=== PATIENT | female | born 1980 | race Caucasian/White ===

== ENCOUNTER 2019-07-21 15:06 | Inpatient (IN) | payer BC ==
--- NOTE | 2019-07-21 15:40 | ER ---
Nurse's Notes [facility] Name: Gertrude Jeter Age: 38 yrs Sex: Female : 1980 Arrival Date: 07/21/2019 Time: 15:10 Bed 20 Private MD: Diagnosis: ST elevation (STEMI) myocardial infarction of inferior wall Presentation: 07/20 15:14 Chief complaint: Patient states: midsternal chest pain x a few weeks ago. Negative sv COVID and placed on 2 rounds of abx for bronchitis. Today it came on suddenly and c/o aching to the jaw and right arm, intermittently. Took ASA 81 mg and it alleviated the pain a little but then came back and started having diaphoresis. Risk Assessment: Do you want to hurt yourself or someone else? Patient reports no desire to harm self or others. Onset of symptoms was June 2019. Care prior to arrival: Medication(s) given: ASA, 81 mg, x 1. 15:14 Method Of Arrival: Ambulatory sv 15:14 Acuity: KRISH 2 sv 15:17 Coronavirus screen: Proceed with normal triage. Patient denies a cough. Patient denies sv shortness of breath or difficulty breathing. Patient denies measured and/or subjective temperature greater than 100.4F prior to today's visit. Patient denies travel on a cruise ship or to a country the [facility] currently lists as an affected area. Patient denies contact with known and/or suspected case of COVID-19. Ebola Screen: No symptoms or risks identified at this time. Initial Sepsis Screen: Does the patient meet any 2 criteria? No. Patient's initial sepsis screen is negative. Does the patient have a suspected source of infection? No. Patient's initial sepsis screen is negative. 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 tw2 Historical: - Allergies: 15:17 No Known Allergies; sv - PMHx: 15:17 GERD; sv - PSHx: 15:17 ; uterine ablation; sv - Immunization history:: Adult Immunizations up to date. - Social history:: Smoking status: Patient reports the use of cigarette tobacco products, denies chronic smoking, but will smoke occasionally. - Family history:: Grandfather has/had NM. - Hospitalizations: : No recent hospitalization is reported. Screenin:20 Abuse screen: Denies threats or abuse. Nutritional screening: No deficits noted. tw2 Tuberculosis screening: No symptoms or risk factors identified. Fall Risk None identified. Assessment: 15:20 General: Appears in no apparent distress. slender, well groomed, Behavior is calm, tw2 cooperative, appropriate for age. Pain: Complains of pain in chest Pain does not radiate. Pain began 2-3 days ago. Neuro: Level of Consciousness is awake, alert, obeys commands, Oriented to person, place, time, situation. Cardiovascular: Reports chest pain, Denies shortness of breath, Heart tones S1 S2 Patient's skin is warm and dry. Respiratory: Airway is patent Respiratory effort is even, unlabored, Respiratory pattern is regular, symmetrical, Breath sounds are clear bilaterally. GI: No signs and/or symptoms were reported involving the gastrointestinal system. Abdomen is flat, Bowel sounds present X 4 quads. : No signs and/or symptoms were reported regarding the genitourinary system. EENT: No signs and/or symptoms were reported regarding the EENT system. Derm: No signs and/or symptoms reported regarding the dermatologic system. Musculoskeletal: Range of motion: intact in all extremities. 16:02 Reassessment: Patient appears in no apparent distress at this time. No changes from tw2 previously documented assessment. Patient and/or family updated on plan of care and expected duration. Pain level reassessed. Patient is alert, oriented x 3, equal unlabored respirations, skin warm/dry/pink. Vital Signs: 15:17 BP 156 / 106; Pulse 85; Resp 16; Temp 98.9(TE); Pulse Ox 99% ; Weight 65.77 kg; Height sv 5 ft. 2 in. (157.48 cm); 15:38 Weight 65.77 kg (R); em 15:38 Body Mass Index 26.52 (65.77 kg, 157.48 cm) em ED Course: 15:10 Patient arrived in ED. mr 15:16 Triage completed. sv 15:19 Arm band placed on. sv 15:20 Gopal Arias MD is Attending Physician. quentin 15:20 Bed in low position. Call light in reach. Placed in gown. acetylene torch operator on. Pulse ox tw2 on. NIBP on. 15:38 Stuart Mathur DO is Hospitalizing Provider. quentin 15:38 Missed attempt(s): 18 gauge in right antecubital area. Bleeding controlled, band aid dh3 applied, catheter tip intact. 15:41 Initial lab(s) drawn, by me, sent to lab. Inserted saline lock: 20 gauge in left dh3 antecubital area, using aseptic technique. Blood collected. 16:02 Pari Wang RN is Primary Nurse. tw2 16:02 No provider procedures requiring assistance completed. Patient admitted, IV remains in tw2 place. Patient maintains SpO2 saturation greater than 95% on room air. Administered Medications: 15:36 Drug: PlaVIX 300 mg Route: PO; tw2 16:02 Follow up: Response: No adverse reaction tw2 15:36 Drug: Aspirin 243 mg Route: PO; tw2 16:02 Follow up: Response: No adverse reaction tw2 15:38 Drug: NS 0.9% 1000 ml Route: IV; Rate: 1 bolus; Site: left antecubital; aa5 16:02 Follow up: IV Status: Infusion continued upon admission tw2 15:38 Drug: Heparin (NM-Bolus No thrombolytic) - HEParin 60 units/kg {Co-Signature: tw2 (Pari Wang RN).} Route: IVP; Site: left antecubital; 16:10 Follow up: 4000 units given based on weight, verified with NILES Stallworth and NILES Yañez \[id number] tw2 15:40 Drug: Heparin (NM Drip) 12 units/kg/hr - (HEParin 70494 units, D5W 500 ml) aa5 {Co-Signature: tw2 (Pari Wang RN).} Route: IV; Rate: calculated rate; Site: left antecubital; 16:02 Follow up: IV Status: Infusion continued upon admission tw2 15:55 Drug: Zofran (Ondansetron) 4 mg Route: IVP; Site: left antecubital; tw2 16:02 Follow up: Response: No adverse reaction tw2 15:57 Drug: morphine 2 mg Route: IVP; Site: left antecubital; tw2 16:02 Follow up: Response: No adverse reaction; Pain is decreased; RASS: Alert and Calm (0) tw2 Intake: Outcome: 15:40 Decision to Hospitalize by Provider. [facility] 16:02 Admitted to Senior Information Security Analyst accompanied by nurse, accompanied by tech, via stretcher, Report tw2 called to clinical lab assistant rn 16:02 Condition: stable 16:02 Instructed on the need for admit. 16:03 Patient left the ED. tw2 Signatures: Raven Gilman RN Gopal Mazariegos MD MD cha Rivera, Mary mr Myrick, Jarvis, RN RN Federica Gutierrez RN RN aa5 Pari Wang RN RN tw2 Anika Theodore 3 Pari Wang RN tw2 Corrections: (The following items were deleted from the chart) 15:19 15:17 Pulse 85bpm; Resp 16bpm; Pulse Ox 99%; Temp 98.9F Temporal; 65.77 kg; Height 5 sv ft. 2 in.; BMI: 26.5; sv 15:20 15:14 Acuity: KRISH 3 sv sv
--- NOTE | 2019-07-21 15:40 | EDPHYS ---
Physician Documentation [facility] Name: Gertrude Jeter Age: 38 yrs Sex: Female : 1980 Arrival Date: 07/21/2019 Time: 15:10 Bed 20 Private MD: Gopal Velazquez HPI: 07/20 15:37 This 38 yrs old Female presents to ER via Ambulatory with complaints of Chest quentin Pain. 15:37 The patient or guardian reports chest pain that is located primarily in the substernal quentin area. The pain radiates to Associated signs and symptoms: Pertinent positives:. The chest pain is described as a heaviness, a pressure. Modifying factors: The symptoms are alleviated by nothing. the symptoms are aggravated by nothing. Severity of pain: At its worst the pain was. The patient has not experienced similar symptoms in the past. 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 tw2 Historical: - Allergies: 15:17 No Known Allergies; sv - PMHx: 15:17 GERD; sv - PSHx: 15:17 ; uterine ablation; sv - Immunization history:: Adult Immunizations up to date. - Social history:: Smoking status: Patient reports the use of cigarette tobacco products, denies chronic smoking, but will smoke occasionally. - Family history:: Grandfather has/had CT. - Hospitalizations: : No recent hospitalization is reported. ROS: 15:37 Constitutional: Negative for fever, chills, and weight loss, Eyes: Negative for injury, quentin pain, redness, and discharge, ENT: Negative for injury, pain, and discharge, Neck: Negative for injury, pain, and swelling, Respiratory: Negative for shortness of breath, cough, wheezing, and pleuritic chest pain, Abdomen/GI: Negative for abdominal pain, nausea, vomiting, diarrhea, and constipation, Back: Negative for injury and pain, : Negative for injury, bleeding, discharge, and swelling, MS/Extremity: Negative for injury and deformity, Skin: Negative for injury, rash, and discoloration, Neuro: Negative for headache, weakness, numbness, tingling, and seizure, Psych: Negative for depression, anxiety, suicide ideation, homicidal ideation, and hallucinations, Allergy/Immunology: Negative for hives, rash, and allergies, Endocrine: Negative for neck swelling, polydipsia, polyuria, polyphagia, and marked weight changes, Hematologic/Lymphatic: Negative for swollen nodes, abnormal bleeding, and unusual bruising. 15:37 Cardiovascular: Positive for chest pain, of the chest. Exam: 15:37 Constitutional: This is a well developed, well nourished patient who is awake, alert, quentin and in no acute distress. Head/Face: Normocephalic, atraumatic. Eyes: Pupils equal round and reactive to light, extra-ocular motions intact. Lids and lashes normal. Conjunctiva and sclera are non-icteric and not injected. Cornea within normal limits. Periorbital areas with no swelling, redness, or edema. ENT: Nares patent. No nasal discharge, no septal abnormalities noted. Tympanic membranes are normal and external auditory canals are clear. Oropharynx with no redness, swelling, or masses, exudates, or evidence of obstruction, uvula midline. Mucous membranes moist. Neck: Trachea midline, no thyromegaly or masses palpated, and no cervical lymphadenopathy. Supple, full range of motion without nuchal rigidity, or vertebral point tenderness. No Meningismus. Chest/axilla: Normal chest wall appearance and motion. Nontender with no deformity. No lesions are appreciated. Cardiovascular: Regular rate and rhythm with a normal S1 and S2. No gallops, murmurs, or rubs. Normal PMI, no JVD. No pulse deficits. Respiratory: Lungs have equal breath sounds bilaterally, clear to auscultation and percussion. No rales, rhonchi or wheezes noted. No increased work of breathing, no retractions or nasal flaring. Abdomen/GI: Soft, non-tender, with normal bowel sounds. No distension or tympany. No guarding or rebound. No evidence of tenderness throughout. Back: No spinal tenderness. No costovertebral tenderness. Full range of motion. Female : Normal external genitalia. Skin: Warm, dry with normal turgor. Normal color with no rashes, no lesions, and no evidence of cellulitis. MS/ Extremity: Pulses equal, no cyanosis. Neurovascular intact. Full, normal range of motion. Neuro: Awake and alert, GCS 15, oriented to person, place, time, and situation. Cranial nerves II-XII grossly intact. Motor strength 5/5 in all extremities. Sensory grossly intact. Cerebellar exam normal. Normal gait. Psych: Awake, alert, with orientation to person, place and time. Behavior, mood, and affect are within normal limits. 15:41 ECG was reviewed by the Attending Physician. [facility] Vital Signs: 15:17 BP 156 / 106; Pulse 85; Resp 16; Temp 98.9(TE); Pulse Ox 99% ; Weight 65.77 kg; Height sv 5 ft. 2 in. (157.48 cm); 15:38 Weight 65.77 kg (R); em 15:38 Body Mass Index 26.52 (65.77 kg, 157.48 cm) em MDM: 15:20 Patient medically screened. [facility] 15:40 Differential diagnosis: abnormal EKG, acute myocardial infarction, coronary artery quentin disease chest wall pain, esophagitis, pericarditis, pulmonary embolus. Data reviewed: vital signs, nurses notes, lab test result(s), EKG, radiologic studies, plain films. Data interpreted: potline monitor: rate is 85 beats/min, rhythm is normal sinus rhythm, Pulse oximetry: on room air is 99 %. Test interpretation: by ED physician or midlevel provider: ECG, plain radiologic studies. 15:59 Physician consultation: Willian Julian MD and will see patient in the bolt labeler, [facility] immediately, pt given all meds, dr julian on standby in the bolt labeler. 07/20 15:33 Order name: Basic Metabolic Panel 07/20 15:33 Order name: CBC with Diff 07/20 15:33 Order name: LFT's 07/20 15:33 Order name: Magnesium 07/20 15:33 Order name: NT PRO-BNP 07/20 15:33 Order name: PT-INR 07/20 15:33 Order name: Troponin (emerg Dept Use Only) 07/20 15:33 Order name: XRAY Chest (1 view) 07/20 15:33 Order name: EKG; Complete Time: 15:34 07/20 15:33 Order name: Cardiac monitoring; Complete Time: 15:44 em 07/20 15:33 Order name: EKG - Nurse/Tech; Complete Time: 15:44 07/20 15:33 Order name: IV Saline Lock; Complete Time: 15:44 07/20 15:33 Order name: Labs collected and sent; Complete Time: 15:44 07/20 15:33 Order name: O2 Per Protocol; Complete Time: 15:44 em 07/20 15:33 Order name: O2 Sat Monitoring; Complete Time: 1507/20 15:36 Order name: NPO: except meds; Complete Time: 16:16 quentin EC:41 Rate is 93 beats/min. Rhythm is regular. QRS [place] is Normal. NV interval is normal. QRS quentin interval is normal. QT interval is normal. No Q waves. T waves are Normal. Clinical impression: Acute CT and Inferior CT - acute. Interpreted by me. Reviewed by me. Administered Medications: 15:36 Drug: PlaVIX 300 mg Route: PO; tw2 16:02 Follow up: Response: No adverse reaction tw2 15:36 Drug: Aspirin 243 mg Route: PO; tw2 16:02 Follow up: Response: No adverse reaction tw2 15:38 Drug: NS 0.9% 1000 ml Route: IV; Rate: 1 bolus; Site: left antecubital; aa5 16:02 Follow up: IV Status: Infusion continued upon admission tw2 15:38 Drug: Heparin (CT-Bolus No thrombolytic) - HEParin 60 units/kg {Co-Signature: tw2 (Pari Wang RN).} Route: IVP; Site: left antecubital; 16:10 Follow up: 4000 units given based on weight, verified with NILES Stallworth and NILES Yañez \[id number] tw2 15:40 Drug: Heparin (CT Drip) 12 units/kg/hr - (HEParin 95549 units, D5W 500 ml) aa5 {Co-Signature: tw (Pari Wang RN).} Route: IV; Rate: calculated rate; Site: left antecubital; 16:02 Follow up: IV Status: Infusion continued upon admission tw2 15:55 Drug: Zofran (Ondansetron) 4 mg Route: IVP; Site: left antecubital; tw2 16:02 Follow up: Response: No adverse reaction tw2 15:57 Drug: morphine 2 mg Route: IVP; Site: left antecubital; tw2 16:02 Follow up: Response: No adverse reaction; Pain is decreased; RASS: Alert and Calm (0) tw2 Disposition: 15:59 Critical Care:. quentin Disposition: 07/21/19 15:40 Hospitalization ordered by Stuart Mathur for Inpatient Admission. Preliminary diagnosis is ST elevation (STEMI) myocardial infarction of inferior wall. - Bed requested for Intensive Care Unit. - Status is Inpatient Admission. tw2 - Condition is Serious. - Problem is new. - Symptoms have improved. Critical care time excluding procedures: 15:59 Critical care time: Bedside Care: 30 minutes. Total time: 30 minutes quentin Signatures: Dispatcher [employer] Raven Sanchez, RN Gopal Mazariegos MD MD cha Munoz, Edgar, RN RN Federica Gutierrez RN RN aa5 Pari Wang RN RN tw2 Pari Wang RN tw2 Corrections: (The following items were deleted from the chart) 15:43 15:40 Hospitalization Ordered by Stuart Mathur DO for Inpatient Admission. Preliminary quentin diagnosis is ST elevation (STEMI) myocardial infarction of inferior wall. Bed requested for Telemetry/MedSurg (Inpatient). Status is Inpatient Admission. Condition is Serious. Problem is new. Symptoms have improved. quentin 16:03 15:43 07/21/2019 15:40 Hospitalization Ordered by Stuart Mathur DO for Inpatient tw2 Admission. Preliminary diagnosis is ST elevation (STEMI) myocardial infarction of inferior wall. Bed requested for Intensive Care Unit. Status is Inpatient Admission. Condition is Serious. Problem is new. Symptoms have improved. quentin
[2019-07-21] MEDS ORDERED: ASPIRIN 81 MG CHEWABLE TABLET ONE (15:42)
[2019-07-21] MEDS ORDERED: CLOPIDOGREL 75 MG TABLET ONE ×2 (15:42→16:57)
[2019-07-21] MEDS ORDERED: HEPARIN/D5W 0 UNIT/0 ML BAG IV ONE (15:43)
[2019-07-21] MEDS ORDERED: HEPARIN 5000 UNIT/ML 1 ML VIAL ONE (15:44)
[2019-07-21] MEDS ORDERED: NA CHLORIDE 0.9% 1,000 ML ONE (15:44)
[2019-07-21] MEDS ORDERED: ACETAMINOPHEN 500 MG TAB PO PRN (15:50)
[2019-07-21] MEDS ORDERED: ONDANSETRON 4 MG/2 ML VIAL IV PRN (15:50)
[2019-07-21 15:58] LABS: Absolute Lymphocytes (CBC) 3.4 K/uL (0.7-4.9); Basophils % 0.6 % (0-1.3); Hematocrit 46.5 % (36.0-45.0); Lymphocytes % 24.7 % (15.3-44.8); MPV 9.2 fL (7.6-11.3); RBC Red Blood Cell Count 4.85 M/uL (3.86-4.86)
[2019-07-21 15:59] LABS: Protime INR 1.02
[2019-07-21] MEDS ORDERED: NA CHLORIDE 0.9% 1,000 ML IV SCH ×2 (16:00→18:00)
[2019-07-21] MEDS ORDERED: NITROGLYCERIN 100 MCG/ML SYR (for cath lab use only) IV ONE (16:09)
[2019-07-21] MEDS ORDERED: NA CHLORIDE 0.9% 50 ML ONE (16:09)
[2019-07-21] MEDS ORDERED: LIDOCAINE 1% 20 ML MDV ONE (16:09)
[2019-07-21] MEDS ORDERED: NITROGLYCERIN/D5W 25 MG/250 ML BTL IV ONE (16:09)
[2019-07-21] MEDS ORDERED: ATROPINE SULF 1 MG/10 ML SYR IV ONE (16:09)
[2019-07-21] MEDS ORDERED: HEPA 1000U/500MLS 1,000 UNIT/500 ML BAG IV ONE (16:10)
[2019-07-21] MEDS ORDERED: HEPARIN/D5W 25,000 UNIT/500 ML BAG IV ONE (16:10)
[2019-07-21] MEDS ORDERED: MIDAZOLAM HCL 2 MG/2 ML INJ ONE ×3 (16:12→16:36)
[2019-07-21] MEDS ORDERED: FENTANYL CITR 100 MCG/2 ML ONE (16:13)
[2019-07-21 16:29] LABS: Albumin 4.4 g/dL (3.4-5.0); Bilirubin Direct 0.1 mg/dL (0-0.2); Bilirubin Total 0.5 mg/dL (0.2-1.0); Potassium 3.9 mmol/L (3.5-5.1); Protein, Total 8.4 g/dL (6.4-8.2)
[2019-07-21 16:36] LABS: Troponin (Emerg Dept Use Only) 0.69 ng/mL (0.0-0.045)
--- NOTE | 2019-07-21 16:37 | RAD REPORT ---
EXAM DESCRIPTION: Bobbi Single View07/21/2019 4:31 pm CLINICAL HISTORY: Chest pain COMPARISON: 2017 FINDINGS: The lungs appear clear of acute infiltrate. The heart is normal size IMPRESSION: No acute abnormalities displayed
--- NOTE | 2019-07-21 16:43 | P.HP ---
Certification for Inpatient Patient admitted to: Inpatient With expected LOS: >2 Midnights Patient will require the following post-hospital care: None Practitioner: I am a practitioner with admitting privileges, knowledge of patient current condition, hospital course, and medical plan of care. Services: Services provided to patient in accordance with Admission requirements found in Title 42 Section 412.3 of the Code of Federal Regulations <MarcyAj - Filed: 07/21/19 16:38> Patient admitted to: Inpatient With expected LOS: >2 Midnights <Stuart Mathur - Last Filed: 07/21/19 18:01> Patient History Date of Service: 07/21/19 Primary Care Provider: Dr. wu Reason for admission: STEMI History of Present Illness: 38-year-old female with medical history of hypertension presents emergency department with complaint of chest pain on and off for the last 1 week. Patient reports today that she was at work and the pain became worse. Upon presentation to the emergency department an EKG was obtained which showed that the patient was having an ST-elevation myocardial infarction. At this time ED provider reached out to cardiology . Cardiology brought the patient to the cath laboratory technician for emergent heart catheterization. When I briefly saw the patient in the emergency department prior to going to cath laboratory technician she appeared anxious and uncomfortable, blood pressure and heart rate were elevated. Home medications list reviewed: Yes - Past Medical/Surgical History Diabetic: No -: Hypertension -: section -: Uterine ablation Psychosocial/ Personal History: Patient lives at home and is single. - Family History Family History: Reviewed- Non-Contributory - Social History Smoking Status: Current every day smoker Counseled patient to stop smoking for: less than 10 minutes Smoking therapy provided: Yes Patient receptive to therapy: Yes Alcohol use: Yes CD- Drugs: No Caffeine use: Yes Place of Residence: Home <Aj Vidal - Last Filed: 07/21/19 16:38> Date of Service: 07/21/19 History of Present Illness: Patient seen and examined. Patient being transferred to heart catheterization. <Stuart Mathur - Last Filed: 07/21/19 18:01> Allergies No Known Allergies Allergy (Unverified 07/24/16 18:19) Review of Systems General: Unremarkable Eyes: Unremarkable ENT: Unremarkable Respiratory: Unremarkable Cardiovascular: Chest Pain Gastrointestinal: Unremarkable Genitourinary: Unremarkable Musculoskeletal: Unremarkable Neurological: Unremarkable Lymphatics: Unremarkable <Aj Vidal - Last Filed: 07/21/19 16:38> Physical Examination - Vital Signs Temperature: 98.9 F Blood Pressure: 156/106 Pulse: 85 Respirations: 16 - Physical Exam General: Alert, In no apparent distress, Oriented x3 HEENT: Atraumatic, Normocephalic Neck: Supple Respiratory: Clear to auscultation bilaterally, Normal air movement Cardiovascular: No edema, Normal pulses Capillary refill: <2 Seconds Gastrointestinal: Normal bowel sounds, Soft and benign Neurological: Normal speech - Studies Laboratory Data (last 24 hrs) 07/21/19 15:41: PT 12.0, INR 1.02 07/21/19 15:41: WBC 13.7 H, Hgb 15.5 H, Hct 46.5 H, Plt Count 357 07/21/19 15:41: Sodium 134 L, Potassium 3.9, BUN 12, Creatinine 0.76, Glucose 98, Magnesium 2.0, Total Bilirubin 0.5, AST 17, ALT 18, Alkaline Phosphatase 79 <Aj Vidal - Last Filed: 07/21/19 16:38> - Studies Laboratory Data (last 24 hrs) 07/21/19 15:41: PT 12.0, INR 1.02 07/21/19 15:41: WBC 13.7 H, Hgb 15.5 H, Hct 46.5 H, Plt Count 357 07/21/19 15:41: Sodium 134 L, Potassium 3.9, BUN 12, Creatinine 0.76, Glucose 98, Magnesium 2.0, Total Bilirubin 0.5, AST 17, ALT 18, Alkaline Phosphatase 79 <Stuart Mathur - Last Filed: 07/21/19 18:01> Assessment and Plan - Plan Assessment ST-elevation myocardial infarction Hypertension Tobacco abuse Plan ST-elevation myocardial infarction-patient taken to cath laboratory technician for emergent heart catheterization. Patient received aspirin, Plavix, heparin in the emergency department prior to catheterization. Cardiology will be managing this condition. Patient will remain on telemetry throughout the duration of her hospitalization. Will await further recommendations from cardiology. Will obtain urine drug screen and thyroid panel. Hypertension- Patient reports that she used to be on medications for her blood pressure but after losing weight no longer required it. Will continue to monitor blood pressure throughout hospitalization and await further input from cardiology. Will start new medications as appropriate. Tobacco abuse- Discussed need for tobacco cessation with patient. Discharge Plan: Home Plan to discharge in: 48 Hours - Advance Directives Does patient have a Living Will: No Does patient have a Durable POA for Healthcare: No - Code Status/Comfort Care Code Status Assessed: Yes (Patient is full code) Time Spent Managing Pts Care (In Minutes): 55 <Aj Vidal - Last Filed: 07/21/19 16:38> - Plan Patient seen and examined. Patient stable this time. Patient found to have ST- elevation CT. History of hypertension and tobacco use. Will obtain urine drug screen. Await results from heart catheterization. Patient will go to ICU after heart catheterization. Await recommendations and findings from cardiology. <Stuart Mathur - Last Filed: 07/21/19 18:01>
[2019-07-21] MEDS ORDERED: METOPROLOL TAR 50 MG TAB ONE (16:57)
[2019-07-21 17:14] LABS: Thyroid Stimulating Hormone 1.71 uIU/mL (0.360-3.740)
[2019-07-21 18:41] VITALS: BMI 24.7
[2019-07-21] MEDS ORDERED: TEMAZEPAM 15 MG CAP PO PRN (20:44)
[2019-07-21] MEDS ORDERED: ATORVASTATIN 80 MG TAB PO SCH (21:00)
[2019-07-21 23:01] LABS: Barbiturates NEGATIVE (NEGATIVE); Benzodiazepines POSITIVE (NEGATIVE); Cocaine NEGATIVE (NEGATIVE); METHAMPHETAM NEGATIVE (NEGATIVE); Methadone NEGATIVE (NEGATIVE); Opiates NEGATIVE (NEGATIVE); Phencyclidine NEGATIVE (NEGATIVE); THC Cannibis NEGATIVE (NEGATIVE)
--- NOTE | 2019-07-21 23:48 | OP ---
Date of Procedure: 07/21/2019 Surgeon: Willian Julian MD Application Security Architect: Lucille Jacques. The patient will remain in the hospital overnight. She will go home tomorrow. We will make arrangem ents for her to have a stent of her OM sometime in the next week or 2. She will be discharged tomorr ow on aspirin, Plavix, metoprolol, and a statin. Procedure: Emergency heart catheterization, selective coronary arteriogram, and primary stent of the proximal and the distal RCA. Indication: Acute inferolateral IN. History Of Present Illness: Ms. Jeter is a 38-year-old white woman, who has no significant past med ical history. She does smoke. Has a family history of heart disease. Was admitted to the emergency room today with an acute inferolateral IN. Description Of Procedure: She was brought to the tutorial laboratory supervisor emergently for a heart catheterization. S he was brought to the tutorial laboratory supervisor and prepped and draped in the routine sterile fashion. She continued to have pain. She had normal blood pressure, normal rhythm, but ST elevation in the inferolateral le ads. She was given Versed and fentanyl for sedation. A 6-English sheath was introduced in the right common femoral artery successfully. StarClose was used to close the procedure. Angiography there wa s normal. Fernanda catheter was used to do the diagnostic catheterization. She had a normal left josé n. She had diffuse plaquing in the LAD with about 30% mid LAD stenosis. The circumflex itself was a very small vessel. She had a large OM-1 with 80% stenosis. She was right dominant. Her RCA showed a 70% proximal stenosis and a 90% long lesion in the distal RCA. Decision was made to intervene. S he was given Plavix 600 mg total. She was given aspirin 325 mg total. She was also given metoprolol 50 mg because of heart rate elevation and blood pressure elevation. A JR4 6-English catheter with si de holes was used as a guide. A [place] wire was used to cross the lesion. A 2.5 x 20 mm stent was d eployed in the distal RCA with 0% residual. Following that, a 3.0 x 16 Synergy stent was deployed in the proximal RCA with 0% residual. The patient tolerated the procedure very well. There was no blo od loss of any significance, was probably 5 mL. There were no complications. Total conscious sedati on was 45 minutes. Final Diagnosis: Acute inferolateral myocardial infarction, status post emergency stent of the proxi mal and distal right coronary artery. She has an OM lesion of 80%, which needs to be addressed later . We will probably plan to do a stent on the OM sometimes in the next week or 2. The patient receiv ed aspirin, Plavix, metoprolol, and Angiomax during the procedure. ARON/MODL Voice ID: [id number] Report ID: [id number]
--- NOTE | 2019-07-22 04:49 | CON ---
Date of Consultation: 07/21/2019 Reason For Consultation: Acute inferolateral myocardial infarction. History Of Present Illness: Ms. Jeter is a 38-year-old white woman without any previous past medica l history. She came in with about a week worth of substernal chest pain radiating to the neck, both arms, diaphoresis, shortness of breath. She was found to have ST elevation in the inferolateral lead s and was taken to the carpenter/labor emergently for an emergency heart catheterization. She had some naus ea. No diaphoresis. No shortness of breath. Denied PND, orthopnea, pedal edema, palpitations, or s yncope. She denied any trauma. She denied any fever or chills or cough. Allergies: NONE. Past Medical History: Gastroesophageal reflux disease, uterine ablation, and . Social History: Positive for tobacco use. Family History: Positive for heart disease. Medications: At home were none. Physical Examination: Vital Signs: Stable. She was afebrile. General: She was in moderate distress from pain. Rhythm was normal with ST elevation in the inferol ateral leads. HEENT: Negative. Neck: Supple, with no bruit. Chest: Clear. Cardiac: Revealed a regular rhythm and rate. No murmurs, gallops, or rubs. Abdomen: Benign. Extremities: Revealed no clubbing, cyanosis, or edema. Diagnostic Data: Showed a white count of 13,000. Her potassium was normal. Her troponin was 0.69. BNP was 1191. The rest of the blood work was fairly unremarkable. Her thyroid level was normal. L ipid profile was still pending. Impression And Plan: Acute inferolateral myocardial infarction in a patient who has a history of smo alonso, positive family history of heart disease, continues to have chest pain. We will take her to carpenter/labor right now to perform a left heart catheterization to define her coronary anatomy. Patient understands the risk and the benefits of the procedure and she agrees to proceed. The patient has r eceived aspirin, 300 mg of Plavix. She is on a heparin drip. Has already received beta dale. case was discussed with Dr. Arias. ARON/PHAM Voice ID: [id number] Report ID: [id number]
[2019-07-22 05:19] LABS: Hematocrit 40.4 % (36.0-45.0); Lymphocytes % 41.4 % (15.3-44.8); MPV 9.2 fL (7.6-11.3); RBC Red Blood Cell Count 4.22 M/uL (3.86-4.86)
[2019-07-22 05:20] LABS: Absolute Lymphocytes (CBC) 3.8 K/uL (0.7-4.9); Basophils % 1.3 % (0-1.3)
[2019-07-22 05:37] LABS: BUN Blood Urea Nitrogen 13 mg/dL (7-18); Bicarbonate 24 mmol/L (21-32); Glucose Level 79 mg/dL (74-106); HDL Cholesterol 42 mg/dL (40-60); LDL Cholesterol, Calculated 145 (<130); Magnesium 2.2 mg/dL (1.8-2.4); NT PRO-BNP 2091 pg/mL (<125); Potassium 4.3 mmol/L (3.5-5.1); Sodium Level 140 mmol/L (136-145)
[2019-07-22 05:53] VITALS: TEMP 97.4
[2019-07-22 05:57] VITALS: O2SAT 97
--- NOTE | 2019-07-22 08:13 | PN ---
Date of Progress Note: 07/22/2019 Subjective: Ms. Jeter was admitted yesterday with an acute inferolateral DE and taken from the [facility] room straight to the tutorial laboratory supervisor, where catheterization revealed a 70% RCA mid stenosis and 90% di stal RCA stenosis. She underwent a stent for RCA in the proximal mid region as well as the distal re gion with 0% residuals. She also was found to have an 80% ostial obtuse marginal stenosis which was left alone at that time because it was not the culprit lesion. Overnight, she had done well. She pelaez s no complaints. Physical Examination: Vital Signs: Stable. She was afebrile. Chest: Clear. Skin: Her groin site is intact without any hematoma. Vascular: She has good distal pulses in the right dorsalis pedis and posterior tibial. Laboratory Data: Her telemetry showed normal sinus rhythm. Assessment And Plan: She is now status post acute inferior myocardial infarction, emergency stent of her RCA. She will go home on aspirin, Plavix, Toprol, and Lipitor, and I will make arrangements for an outpatient OM stent in the near future. ARON/PHAM Voice ID: [id number] Report ID: [id number]
--- NOTE | 2019-07-22 08:19 | P.DS ---
Admission Date: 07/21/19 Discharge Date: 07/22/19 Primary Care Provider: Dr. Horner Disposition: ROUTINE DISCHARGE Discharge Condition: GOOD Reason for Admission: STEMI Consultations: Cardiology-Dr. Julian Procedures: Heart catheterization: Date of Procedure: 07/21/2019 Surgeon: Willian Julian MD Flight Engineer Performance Qualified: Lucille Jacques. Procedure: Emergency heart catheterization, selective coronary arteriogram, and primary stent of the proximal and the distal RCA. Indication: Acute inferolateral SC. Description Of Procedure: She was brought to the labourers emergently for a heart catheterization. She had normal blood pressure, normal rhythm, but ST elevation in the inferolateral leads. She had a normal left main. She had diffuse plaquing in the LAD with about 30% mid LAD stenosis. The circumflex itself was a very small vessel. She had a large OM-1 with 80% stenosis. She was right dominant. Her RCA showed a 70% proximal stenosis and a 90% long le sanket in the distal RCA. A 2.5 x 20 mm stent was deployed in the distal RCA with 0% residual. Following that, a 3.0 x 16 Synergy stent was deployed in the proximal RCA with 0% residual. The patient tolerated the procedure very well. There was no blood loss of any significance, was probably 5 mL. There were no complications. Total conscious sedation was 45 minutes. Final Diagnosis: Acute inferolateral myocardial infarction, status post emergency stent of the proximal and distal right coronary artery. She has an OM lesion of 80%, which needs to be addressed later. We will probably plan to do a stent on the OM sometimes in the next week or 2. The patient received aspirin, Plavix, metoprolol, and Angiomax during the procedure. Medical problem list: Acute ST-elevation myocardial infarction status post emergent heart catheterization showing diffuse plaquing in the LAD with about 30% mid LAD stenosis and large OM-1 with 80% stenosis. RCA showed 70% proximal stenosis and 90% long lesion in the distal RCA. Status post stenting-distal RCA and a proximal RCA Hypertension Hyperlipidemia Tobacco abuse Brief History of Present Illness: 38-year-old female presented to the emergency room with chest pain and shortness of breath. Patient found to have EKG changes of ST elevation SC. Patient was emergently sent to the heart catheterization lab for intervention. Hospital Course: Patient presented with acute chest pain and shortness of breath. Patient found to have acute ST elevation SC. Patient had emergent heart catheterization with cardiology. Heart catheterization showed diffuse plaquing in the LAD with about 30% mid LAD stenosis and large OM-1 with 80% stenosis. RCA showed 70% proximal stenosis and 90% long lesion in the distal RCA stenosis. Patient required stenting to the distal RCA and proximal RCA. Cardiology mentioned that another stent to her OM-1 stenosis will be required in the next 1-2 weeks. Patient tolerated the procedure well. She was sent to ICU Overnite. The patient has done well. No further chest pain or shortness of breath noted. LDL elevated at 145. Patient was started on medication for hypertension and hyperlipidemia. Patient has been cleared by cardiology for discharge. At discharge patient will continue with aspirin 81 mg daily, Plavix 75 mg daily, Toprol XL 25 mg daily, and Lipitor 80 mg daily. Patient will follow up with Cardiology this week to further address her other stenosis. Arrangements for heart catheterization- stenting of large OM-1 stenosis is planned within the next 1-2 weeks. Education on CAD, hypertension, hyperlipidemia, and heart catheterization will be provided. Patient is not to work until cleared by cardiology. Tobacco cessation education will be provided. Vital Signs/Physical Exam: Temp Pulse Resp BP Pulse Ox 97.4 F 75 18 111/91 H 96 07/22/19 04:00 07/22/19 06:00 07/22/19 06:00 07/22/19 06:00 07/22/19 04:00 General: Alert, In no apparent distress, Oriented x3, Cooperative HEENT: Atraumatic Neck: Supple Respiratory: Clear to auscultation bilaterally, Normal air movement Cardiovascular: Normal pulses, Regular rate/rhythm Gastrointestinal: Normal bowel sounds, Soft and benign, Non-distended, No tenderness, No masses, No rebound, No guarding Integumentary: No cyanosis Neurological: Normal speech, Normal strength at 5/5 x4 extr, Normal tone, Normal affect Laboratory Data at Discharge: WBC 9.2 K/uL (4.3-10.9) D 07/22/19 04:59 Hgb 13.9 g/dL (12.0-15.0) 07/22/19 04:59 Hct 40.4 % (36.0-45.0) 07/22/19 04:59 Plt Count 279 K/uL (152-406) D 07/22/19 04:59 PT 12.0 SECONDS (9.5-12.5) 07/21/19 15:41 INR 1.02 07/21/19 15:41 Sodium 140 mmol/L (136-145) 07/22/19 04:59 Potassium 4.3 mmol/L (3.5-5.1) 07/22/19 04:59 BUN 13 mg/dL (7-18) 07/22/19 04:59 Creatinine 0.64 mg/dL (0.55-1.3) 07/22/19 04:59 Glucose 79 mg/dL (74-106) 07/22/19 04:59 Magnesium 2.2 mg/dL (1.8-2.4) 07/22/19 04:59 Total Bilirubin 0.5 mg/dL (0.2-1.0) 07/21/19 15:41 AST 17 U/L (15-37) 07/21/19 15:41 ALT 18 U/L (12-78) 07/21/19 15:41 Alkaline Phosphatase 79 U/L (45-117) 07/21/19 15:41 Troponin I Cancelled 07/22/19 00:00 Triglycerides 136 mg/dL (<150) 07/22/19 04:59 Cholesterol 214 mg/dL (<200) H 07/22/19 04:59 HDL Cholesterol 42 mg/dL (40-60) 07/22/19 04:59 Cholesterol/HDL Ratio 5.10 07/22/19 04:59 Home Medications: Omeprazole Magnesium [Prilosec Otc] 20 mg PO DAILY 07/21/19 Aspirin [Aspirin EC 81 MG] 81 mg PO DAILY #30 tablet. 07/22/19 Atorvastatin Calcium [Lipitor] 80 mg PO BEDTIME #30 tab 07/22/19 Clopidogrel Bisulfate [Plavix*] 75 mg PO DAILY #30 tablet 07/22/19 Metoprolol Succinate [Toprol Xl*] 50 mg PO DAILY #30 tab 07/22/19 New Medications: Aspirin [Aspirin EC 81 MG] 81 mg PO DAILY #30 tablet. Atorvastatin Calcium [Lipitor] 80 mg PO BEDTIME #30 tab Clopidogrel Bisulfate [Plavix*] 75 mg PO DAILY #30 tablet Metoprolol Succinate [Toprol Xl*] 50 mg PO DAILY #30 tab Patient Discharge Instructions: 1. Recommend follow up with PCP in 1 week to follow up this hospitalization. 2. Patient presented with acute chest pain and shortness of breath. Patient found to have acute ST elevation SC. Patient had emergent heart catheterization with cardiology. Heart catheterization showed diffuse plaquing in the LAD with about 30% mid LAD stenosis and large OM-1 with 80% stenosis. RCA showed 70% proximal stenosis and 90% long lesion in the distal RCA stenosis. Patient required stenting to the distal RCA and proximal RCA. Cardiology mentioned that another stent to her OM-1 stenosis will be required in the next 1-2 weeks. Patient tolerated the procedure well. She was sent to ICU Overnite. The patient has done well. No further chest pain or shortness of breath noted. LDL elevated at 145. Patient was started on medicati on for hypertension and hyperlipidemia. Patient has been cleared by cardiology for discharge. At discharge patient will continue with aspirin 81 mg daily, Plavix 75 mg daily, Toprol XL 25 mg daily, and Lipitor 80 mg daily. Prescriptions for medications provided by Cardiology. Patient will follow up with Cardiology this week to further address her other stenosis. Arrangements for heart catheterization-stenting of large OM-1 stenosis is planned within the next 1-2 weeks. Education on CAD, hypertension, hyperlipidemia, and heart catheterization will be provided. Patient is not to work until cleared by cardiology. Tobacco cessation education will be provided. Diet: AHA Activity: Ad ana Followup: Willian Julian MD [ACTIVE - CAN ADMIT] - (Call Wednesday for scheduling next cath) Jesse Horner MD [Primary Care Provider] - 1-2 Weeks (Follow up in 1-2 weeks) Time spent managing pt's care (in minutes): 55
[2019-07-22 08:20] VITALS: BP 115/85
[2019-07-22] MEDS ORDERED: CLOPIDOGREL 75 MG TABLET PO SCH (09:00)
[2019-07-22] MEDS ORDERED: ASPIRIN EC 81 MG TAB PO SCH (09:00)
[2019-07-22] MEDS ORDERED: NICOTINE 21 MG/PAT TD SCH (09:00)
[2019-07-22] MEDS ORDERED: METOPROLOL XL 50 MG TAB PO SCH (09:00)
--- NOTE | 2019-07-22 12:19 | EKG ---
Test Date: 2019-07-21 Test Time: 15:28:15 Continuous Washer Operator: SUZANNA MEASUREMENT RESULTS: Intervals: Rate: 93 IA: 134 QRSD: 78 QT: 368 QTc: 457 [place]: P: 35 IA: 134 QRS: 68 T: 77 INTERPRETIVE STATEMENTS: Age and gender specific ECG analysis Normal sinus rhythm ST elevation, consider inferolateral injury or acute infarct ACUTE VT Consider right ventricular involvement in acute inferior infarct Abnormal ECG Compared to ECG 07/24/2016 14:34:15 ST (T wave) deviation now present Myocardial infarct finding now present Myocardial infarct finding now present Sinus tachycardia no longer present Electronically Signed On 07-22-19 12:17:47 CDT by Willian Julian
--- NOTE | 2019-07-26 07:26 | EKG ---
Test Date: 2019-07-21 Test Time: 16:26:17 Driver Guard: SANDY MEASUREMENT RESULTS: Intervals: Rate: 74 MS: 132 QRSD: 74 QT: 416 QTc: 461 [place]: P: 8 MS: 132 QRS: 58 T: 1 INTERPRETIVE STATEMENTS: Sinus rhythm with occasional premature ventricular complexes T wave abnormality, consider inferior ischemia Prolonged QT Abnormal ECG Compared to ECG 07/21/2019 15:28:15 Ventricular premature complex(es) now present T-wave abnormality now present Possible ischemia now present Prolonged QT interval now present ST (T wave) deviation no longer present Myocardial infarct finding no longer present Myocardial infarct finding no longer present Electronically Signed On 07-26-19 07:23:18 CDT by Willian Julian
== END 2019-07-22 08:09 | disposition home or self-care (01) | DRG 247 ==
LOC: ER 15:06 → ERHOLD 15:49 → 3RD-ICU 17:15
PROVIDERS: ADMIT Family Medicine; ATTEND Family Medicine
PROC: 027035Z Dilation of Coronary Artery, One Artery with Two Drug-eluting Intraluminal Devices, Percutaneous Approach (ICD-10-PCS; principal; 2019-07-21)
PROC: 4A023N7 Measurement of Cardiac Sampling and Pressure, Left Heart, Percutaneous Approach (ICD-10-PCS; 2019-07-21)
PROC: B2111ZZ Fluoroscopy of Multiple Coronary Arteries using Low Osmolar Contrast (ICD-10-PCS; 2019-07-21)
DX: I21.19 ST elevation (STEMI) myocardial infarction involving other coronary artery of inferior wall (principal); I10 Essential (primary) hypertension; F41.9 Anxiety disorder, unspecified; K21.9 Gastro-esophageal reflux disease without esophagitis; F17.210 Nicotine dependence, cigarettes, uncomplicated; E78.5 Hyperlipidemia, unspecified; Z79.82 Long term (current) use of aspirin; Z79.02 Long term (current) use of antithrombotics/antiplatelets; Z79.899 Other long term (current) drug therapy
CPT/HCPCS: 36415; 71045; 80048; 80061; 80076; 80307; 82947; 83735; 83880; 84439; 84443; 84484; 85025; 85347; 85610; 92928; 93005; 93454; 96365; 96375; 99285; C1725; C1893; J0583; J1644; J2250; J3010; J7030

== ENCOUNTER 2019-07-27 11:04 | Observation (INO) | payer BC ==
[2019-07-27] MEDS ORDERED: NA CHLORIDE 0.9% 500 ML ONE ×3 (11:23→14:14)
[2019-07-27] MEDS ORDERED: HEPA 1000U/500MLS 2,000 UNIT/1,000 ML BAG IV ONE (12:05)
[2019-07-27] MEDS ORDERED: FENTANYL CITR 100 MCG/2 ML ONE ×5 (12:19→13:41)
[2019-07-27] MEDS ORDERED: HEPARIN 5000 UNIT/ML 1 ML VIAL ONE ×2 (12:19→14:21)
[2019-07-27] MEDS ORDERED: NITROGLYCERIN 100 MCG/ML SYR (for cath lab use only) IV ONE (12:20)
[2019-07-27] MEDS ORDERED: ATROPINE SULF 1 MG/10 ML SYR IV ONE (12:20)
[2019-07-27] MEDS ORDERED: NITROGLYCERIN/D5W 25 MG/250 ML BTL IV ONE (12:20)
[2019-07-27] MEDS ORDERED: MIDAZOLAM HCL 5 MG/5 ML INJ ONE (12:20)
[2019-07-27] MEDS ORDERED: NICARDIPINE HCL 25 MG/10 ML IV ONE (12:21)
[2019-07-27] MEDS ORDERED: MIDAZOLAM HCL 2 MG/2 ML INJ ONE (12:42)
[2019-07-27] MEDS ORDERED: CLOPIDOGREL 75 MG TABLET ONE (13:06)
[2019-07-27] MEDS ORDERED: HEPA 1000U/500MLS 1,000 UNIT/500 ML BAG IV ONE ×2 (13:27→14:07)
[2019-07-27] MEDS ORDERED: NITROGLYCERIN 0.4 MG/TAB SL ONE (13:39)
[2019-07-27] MEDS ORDERED: NA CHLORIDE 0.9% 0 ML ONE (14:14)
[2019-07-27] MEDS ORDERED: ACETAMINOPHEN 325 MG TABLET ONE (14:36)
[2019-07-27 16:50] VITALS: BMI 26.4
[2019-07-27] MEDS ORDERED: ZOLPIDEM TARTRATE 5 MG TABLET PO PRN (18:27)
[2019-07-27] MEDS ORDERED: ONDANSETRON 4 MG/2 ML VIAL IV PRN (18:30)
[2019-07-27] MEDS: ACETAMINOPHEN 325 MG TABLET PO PRN (21:10)
[2019-07-27] MEDS: MORPHINE 4 MG/ML SYR IV PRN (22:15)
--- NOTE | 2019-07-28 01:36 | OP ---
Date of Procedure: 07/27/2019 Surgeon: SHABBIR JOHNSON Admin Assistant: Dr. Shabbir Johnson. Names Of Procedures: 1.Selective coronary angiogram. 2.Percutaneous coronary intervention of severe second OM branch, ostial to proximal stenosis, 90%, l esion length is 15 mm. We used a 2.5 x 20 mm Synergy drug-eluting stent. ROXI-3 flow before and aft er percutaneous coronary intervention, 0% residual stenosis post percutaneous coronary intervention. 3.Percutaneous coronary intervention of the proximal severe right coronary artery stenosis using a 3 x 24 mm Synergy drug-eluting stent overlapped by 3.0 x 60 mm Synergy drug-eluting stent. Lesion moise gth is 22 mm. ROXI-3 flow before and after percutaneous coronary intervention, 0% residual stenosis post percutaneous coronary intervention. Access: Failed right radial artery due to spasm and then switched to right femoral artery 6-Kenyan, closed with 6-Kenyan Angio-Seal with good hemostasis. TR band was used to close the right radial acc ess. Indication: Recent non-ST elevation myocardial infarction. Complication: Dissection of the proximal right coronary artery was successfully treated with PCI as above with resultant ROXI-3 flow. Licensed Occupational Therapist: Willian Julian M.D. Description Of Procedure: Patient was brought to the cardiac catheterization laboratory, prepped and draped in usual sterile fashion and we used the incremental doses of fentanyl and Versed to achieve adequate moderate sedation. Then, we accessed the right radial artery and 6-Kenyan sheath was placed . Then, we needed the 6-Kenyan JR4 Diagnostic catheter and engaged the right coronary artery. Stand david views were obtained and then the artery started spasming significantly. We could not exchange fo r guide, so we switched to the groin access. After landmarks were identified and injecting lidocaine into the skin and subcutaneous tissue, we accessed the right femoral artery at the mid femoral head and then inserted a 6-Kenyan [place] sheath. Then, we took a left 3.5 guide and engaged the left ma in coronary artery and took a run-through wire and passed it through the second OM stenosis, and we u sed a 2.5 x 50 mm balloon for angioplasty and then used a 2.5 x 20 mm Synergy drug-eluting stent with ROXI-3 flow and no complication. Then, we took a JR4 guide into the aortic root over the J-wire and engaged the right coronary artery. Subsequently, there was significant dampening of the pressure du e to severe stenosis of the proximal RCA and then, subsequently a dissection happened at the proximal portion of the artery and caused the loss of flow and ST-elevation. Patient started having chest pa in. We immediately changed the guide to a 3DRC guide and as trial to pass run-through wire through t JR4 guide failed, we kept going through the dissection plane and through the DRC guide after multi ple attempts, we were able to send a run-through wire through the RCA into the PLB and we established flow. The ST elevation resolved. Chest pain resolved. Then, we took a 3.0 x 24 mm Synergy drug-el uting stent and stented the proximal portion of the RCA. There was still an area that did not get co wayne with the stent and dissection was still present there, so we overlapped the previous stent by a nother stent, which was 3.0 x 16 mm Synergy drug-eluting stent and then took a final picture and had ROXI-3 flow with excellent results. Then, we took the wires and guides outside the body and took the femoral sheath out and closed the femoral access with a 6-Kenyan Angio-Seal with good hemostasis. T ook the radial sheath out and closed it with a TR band with good hemostasis. Impression: Severe second obtuse marginal coronary artery disease and proximal right coronary artery stenosis, status post percutaneous coronary intervention as above. Recommendations: 1.Aggressive cardiac risk factor modification. 2.Patient was loaded with 300 mg of Plavix. Continue 75 mg daily and aspirin 81 mg. Of note, the p atient was on Plavix at home. Findings: 1.Severe second OM ostial to proximal stenosis, 90%, status post PCI as above. 2.Severe proximal RCA stenosis, status post PCI as above. 3.Stent edge dissection of the distal RCA, however, with the ROXI-3 flow was kept for medical manage ment at this point. SR/MODL Voice ID: [id number] Report ID: [id number]
[2019-07-28] MEDS: MORPHINE 4 MG/ML SYR IV PRN ×2 (02:46→06:36)
[2019-07-28 04:44] VITALS: O2SAT 97
[2019-07-28 04:56] LABS: Absolute Lymphocytes (CBC) 2.3 K/uL (0.7-4.9); Basophils % 1.4 % (0-1.3); Hematocrit 36.3 % (36.0-45.0); Lymphocytes % 37.4 % (15.3-44.8); MPV 9.5 fL (7.6-11.3); RBC Red Blood Cell Count 3.75 M/uL (3.86-4.86)
[2019-07-28 05:10] LABS: BUN Blood Urea Nitrogen 9 mg/dL (7-18); Bicarbonate 26 mmol/L (21-32); Glucose Level 80 mg/dL (74-106); Potassium 4.2 mmol/L (3.5-5.1); Sodium Level 138 mmol/L (136-145)
[2019-07-28] MEDS: ACETAMINOPHEN 325 MG TABLET PO PRN (06:13)
[2019-07-28 07:30] VITALS: BP 99/71
[2019-07-28 07:42] VITALS: TEMP 98.3
[2019-07-28] MEDS ORDERED: ATORVASTATIN 80 MG TAB PO SCH (09:00)
[2019-07-28] MEDS ORDERED: ASPIRIN 81 MG CHEWABLE TABLET PO SCH (09:00)
[2019-07-28] MEDS ORDERED: CLOPIDOGREL 75 MG TABLET PO SCH (09:00)
--- NOTE | 2019-07-29 21:03 | PN ---
Date of Progress Note: 07/28/2019 Subjective: Ms. Jeter was admitted as an outpatient on 07/27/2019 for a staged intervention of the obtuse marginal. She underwent a successful angioplasty and stent of the OM with 0% residual. RCA i njection showed a small dissection in the distal RCA after a recent stent that was done about a week ago. Attempt to dilate and stent that lesion resulted initially in a dissection of the proximal RCA. This was taken care of with angioplasty and multiple stents in the proximal RCA and mid and distal RCA with 0% residual. Overnight, patient did well. No complaints. Right groin was intact without a ny hematoma. She did not have any arrhythmias overnight. Physical Examination: Vital Signs: Stable. Chest: Clear. Diagnostic Data: Her diagnostic data were all within normal limits. Final Impression: Status post successful angioplasty and stent of the obtuse marginal and right shimon nary artery, status post recent myocardial infarction about a week ago. Patient is on appropriate th erapy with aspirin, beta-blockers, Plavix, and statin. I am comfortable with her going home. I will see her in the office in the near future. ARON/PHAM Voice ID: [id number] Report ID: [id number]
--- NOTE | 2019-08-04 06:27 | EKG ---
Test Date: 2019-07-27 Test Time: 13:37:30 Polisher Balance Screwhead: LUIS MIGUEL MEASUREMENT RESULTS: Intervals: Rate: 84 MI: 144 QRSD: 76 QT: 408 QTc: 482 [place]: P: 37 MI: 144 QRS: 34 T: -39 INTERPRETIVE STATEMENTS: Sinus rhythm with fusion complexes T wave abnormality, consider inferolateral ischemia Prolonged QT Abnormal ECG Compared to ECG 07/27/2019 12:34:59 Fusion complex(es) now present T-wave abnormality now present Possible ischemia now present Prolonged QT interval now present ST (T wave) deviation no longer present Myocardial infarct finding no longer present Myocardial infarct finding no longer present Electronically Signed On 08-04-19 06:24:27 CDT by Willian Julian
--- NOTE | 2019-08-04 06:28 | EKG ---
Test Date: 2019-07-27 Test Time: 12:34:59 Pharmacy Technology Instructor: LUIS MIGUEL MEASUREMENT RESULTS: Intervals: Rate: 75 RI: 158 QRSD: 80 QT: 364 QTc: 406 [place]: P: 49 RI: 158 QRS: 78 T: 109 INTERPRETIVE STATEMENTS: Poor data quality, interpretation may be adversely affected Age and gender specific ECG analysis Normal sinus rhythm ST elevation, consider inferior injury or acute infarct ACUTE ND Consider right ventricular involvement in acute inferior infarct Abnormal ECG Compared to ECG 07/21/2019 16:26:17 ST (T wave) deviation now present Myocardial infarct finding now present Myocardial infarct finding now present Ventricular premature complex(es) no longer present T-wave abnormality no longer present Possible ischemia no longer present Prolonged QT interval no longer present Electronically Signed On 08-04-19 06:24:48 CDT by Willian Julian
== END 2019-07-28 07:29 | disposition home or self-care (01) ==
LOC: CCL 11:04 → 3RD-ICU 15:00
PROC: 027136Z Dilation of Coronary Artery, Two Arteries with Three Drug-eluting Intraluminal Devices, Percutaneous Approach (ICD-10-PCS; principal; 2019-07-27)
DX: I21.19 ST elevation (STEMI) myocardial infarction involving other coronary artery of inferior wall (principal); I25.10 Atherosclerotic heart disease of native coronary artery without angina pectoris; I97.88 Other intraoperative complications of the circulatory system, not elsewhere classified; I25.42 Coronary artery dissection; Y65.8 Other specified misadventures during surgical and medical care; Y92.238 Other place in hospital as the place of occurrence of the external cause; F17.200 Nicotine dependence, unspecified, uncomplicated; K21.9 Gastro-esophageal reflux disease without esophagitis; Z82.49 Family history of ischemic heart disease and other diseases of the circulatory system
CPT/HCPCS: 92928 ×3; 93005 ×2; 85025; 80048; 36415; 85347 ×3; 92929; 93458; G0379; C1893; C1760; C1725; J1644 ×2; J2250 ×2; J3010 ×5; J7040 ×3; G0378 ×3; J7030

== ENCOUNTER 2019-07-29 16:14 | Emergency (ER) | payer BC ==
--- NOTE | 2019-07-29 18:30 | EDPHYS ---
Physician Documentation [facility] Name: Gertrude Jeter Age: 38 yrs Sex: Female : 1980 Arrival Date: 07/29/2019 Time: 16:15 Bed 15 Private MD: Willian Julian S ED Physician Peter Dodge HPI: 07/28 18:04 This 38 yrs old Female presents to ER via Ambulatory with complaints of rn Hematoma. 18:04 The patient presents with pain, swelling. The complaints affect the right femoral area. rn Onset: The symptoms/episode began/occurred today. Modifying factors: The symptoms are alleviated by nothing. the symptoms are aggravated by nothing. Severity of symptoms: At their worst the symptoms were mild. The patient has not experienced similar symptoms in the past. Reports recent heart cath, has not done anything recently, today noticed hematoma, called cardiology, told to come for evaluation. No other complaints. No new blood thinners. Reports did get upset last night and had argument with son. . 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 - Social history:: Smoking status: Patient/guardian denies using tobacco, but has a distant history of tobacco abuse. - Family history:: not pertinent. - Hospitalizations: : The patient was recently seen at [facility]. ROS: 18:04 Constitutional: Negative for fever, chills, and weight loss, Eyes: Negative for injury, rn pain, redness, and discharge, Cardiovascular: Negative for chest pain, palpitations, and edema, Respiratory: Negative for shortness of breath, cough, wheezing, and pleuritic chest pain, Abdomen/GI: Negative for abdominal pain, nausea, vomiting, diarrhea, and constipation, MS/Extremity: + mild right femoral pain Skin: Negative for injury, rash, and discoloration, Neuro: Negative for headache, weakness, numbness, tingling, and seizure. Exam: 18:04 Constitutional: This is a well developed, well nourished patient who is awake, alert, rn and in no acute distress. Cardiovascular: Regular rate and rhythm with a normal S1 and S2. No gallops, murmurs, or rubs. Normal PMI, no JVD. No pulse deficits. Respiratory: Lungs have equal breath sounds bilaterally, clear to auscultation and percussion. No rales, rhonchi or wheezes noted. No increased work of breathing, no retractions or nasal flaring. Abdomen/GI: Soft, non-tender, with normal bowel sounds. No distension or tympany. No guarding or rebound. No evidence of tenderness throughout. MS/ Extremity: + swelling Vital Signs: 16:31 BP 108 / 80; Pulse 81; Resp 16 S; Temp 97.2(TE); Pulse Ox 100% on R/A; Weight 65.09 kg; ca1 Height 5 ft. 2 in. (157.48 cm) (R); Pain 6/10; 16:31 Body Mass Index 26.25 (65.09 kg, 157.48 cm) ca1 MDM: 16:47 Patient medically screened. rn 18:29 Differential diagnosis: hematoma, fistula, aneurysm. Data reviewed: vital signs, nurses rn notes, radiologic studies, ultrasound, and as a result, I will discharge patient. Counseling: I had a detailed discussion with the patient and/or guardian regarding: the historical points, exam findings, and any diagnostic results supporting the discharge/admit diagnosis, radiology results, the need for outpatient follow up, to return to the emergency department if symptoms worsen or persist or if there are any questions or concerns that arise at home. Special discussion: I discussed with the patient/guardian in detail that at this point there is no indication for admission to the hospital. It is understood, however, that if the symptoms persist or worsen the patient needs to return immediately for re-evaluation. 07/28 16:59 Order name: Lower Extremity [facility]tery [employer] ; Complete Time: 07:50 rn Administered Medications: No medications were administered Disposition: 07/29/19 18:30 Discharged to Home. Impression: Femoral hematoma. - Condition is Stable. - Discharge Instructions: Hematoma. - Medication Reconciliation Form, Thank You Letter, Antibiotic Education, Prescription Opioid Use form. - Follow up: Willian Julian MD; When: As needed; Reason: Recheck today's complaints, Re-evaluation by your physician. - Problem is new. - Symptoms have improved. Signatures: Dispatcher [employer] EDSD Peter Dodge MD MD rn Stewart, Lisa, RN RN ls4 Belkys Fuller RN RN ca1 Corrections: (The following items were deleted from the chart) 19:00 18:30 07/29/2019 18:30 Discharged to Home. Impression: Femoral hematoma. Condition is ls4 Stable. Forms are Medication Reconciliation Form, Thank You Letter, Antibiotic Education, Prescription Opioid Use. Follow up: Willian Julian; When: As needed; Reason: Recheck today's complaints, Re-evaluation by your physician. Problem is new. Symptoms have improved. rn
--- NOTE | 2019-07-29 18:30 | ER ---
Nurse's Notes [facility] Name: Gertrude Jeter Age: 38 yrs Sex: Female : 1980 Arrival Date: 07/29/2019 Time: 16:15 Bed 15 Private MD: Willian Julian S Diagnosis: Femoral hematoma Presentation: 07/28 16:31 Chief complaint: Patient states: Had 2 Heart stents through R femoral vein. Last stent ca1 done on , 07/27/2019. Noticed a Hematoma at the area today, pain at the site when walking. Reports hasn't been feeling well since the . Coronavirus screen: Proceed with normal triage. Patient denies a cough. Patient denies shortness of breath or difficulty breathing. Patient denies measured and/or subjective temperature greater than 100.4F prior to today's visit. Patient denies travel on a cruise ship or to a country the [facility] currently lists as an affected area. Patient denies contact with known and/or suspected case of COVID-19. Ebola Screen: Patient negative for fever greater than or equal to 101.5 degrees Fahrenheit, and additional compatible Ebola Virus Disease symptoms Patient denies exposure to infectious person. Patient denies travel to an Ebola-affected area in the 21 days before illness onset. No symptoms or risks identified at this time. Initial Sepsis Screen: Does the patient meet any 2 criteria? No. Patient's initial sepsis screen is negative. Does the patient have a suspected source of infection? No. Patient's initial sepsis screen is negative. Risk Assessment: Do you want to hurt yourself or someone else? Patient reports no desire to harm self or others. Onset of symptoms was July 29, 2019. 16:31 Method Of Arrival: Ambulatory ca1 16:31 Acuity: KRISH 3 ca1 Triage Assessment: 17:15 General: Appears in no apparent distress. uncomfortable, Behavior is calm, cooperative. ls4 Pain: Complains of pain in right femoral area Pain currently is 6 out of 10 on a pain scale. at worst was 9 out of 10 on a pain scale. Aggravated by increased activity, weight bearing. Neuro: No deficits noted. Cardiovascular: Denies chest pain, diaphoresis, lightheadedness, nausea, palpitations, shortness of breath, syncope, vomiting, Capillary refill < 3 seconds Clubbing of nail beds is absent JVD is absent Thorax Patient's skin is warm and dry. Rhythm is sinus arrythmia Chest pain is denied. Musculoskeletal: Circulation, motion, and sensation intact. Capillary refill < 3 seconds, Range of motion: intact in all extremities, Swelling present in right femoral area. 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 - Social history:: Smoking status: Patient/guardian denies using tobacco, but has a distant history of tobacco abuse. - Family history:: not pertinent. - Hospitalizations: : The patient was recently seen at [facility]. Screenin:15 Abuse screen: Denies threats or abuse. Denies injuries from another. Nutritional ls4 screening: No deficits noted. Tuberculosis screening: No symptoms or risk factors identified. Fall Risk None identified. Vital Signs: 16:31 BP 108 / 80; Pulse 81; Resp 16 S; Temp 97.2(TE); Pulse Ox 100% on R/A; Weight 65.09 kg; ca1 Height 5 ft. 2 in. (157.48 cm) (R); Pain 6/10; 16:31 Body Mass Index 26.25 (65.09 kg, 157.48 cm) ca1 ED Course: 16:15 Patient arrived in ED. as 16:16 Willian Julian MD is Private Physician. as 16:36 Triage completed. ca1 16:38 Arm band placed on right wrist. ca1 16:42 Marlys Landa, NILES is Primary Nurse. ls4 16:47 Peter Dodge MD is Attending Physician. rn 17:15 Patient has correct armband on for positive identification. Bed in low position. Call ls4 light in reach. Side rails up X 1. 17:15 No provider procedures requiring assistance completed. EKG done, by ED staff, reviewed ls4 by Peter Dodge MD. 17:15 Patient maintains SpO2 saturation greater than 95% on room air. ls4 17:52 Lower Extremity Artery Uni Ltd US In Process Unspecified. EDMS 17:52 Ultrasound completed. Patient tolerated well. Notified LEAD DATABASE ADMINISTRATOR/PA sloane. sg3 18:29 Willian Julian MD is Referral Physician. rn Administered Medications: No medications were administered Outcome: 18:30 Discharge ordered by . rn 19:00 Patient left the ED. ls4 Signatures: Dispatcher [employer] EDMS Jonelle Tena Roman, MD MD rn Godinez, Luz Marina sg3 Marlys Landa, RN RN ls4 Belkys Fuller RN RN ca1
--- NOTE | 2019-07-29 18:54 | RAD REPORT ---
EXAM DESCRIPTION: US - Lower Extremity Artery Uni Ltd - 07/29/2019 5:51 pm CLINICAL HISTORY: recent heart cath, rule out femoral artery/venous fistula COMPARISON: No comparisons TECHNIQUE: Doppler evaluation of the right arterial tree performed. Waveforms and velocity values we re obtained along with visual inspection. FINDINGS: Triphasic waveform pattern was seen along the length of the right lower extremity. No occl usion or focal flow restricting lesion identifiable. In the right common femoral artery region no pse udoaneurysm seen. No findings to suspect femoral artery to venous fistula. IMPRESSION: No right groin AV fistula seen. No pseudoaneurysm. No suspicious findings in the right lower extremity arterial tree.
[2019-07-29 19:06] VITALS: BP 108/80; TEMP 97.2; O2SAT 100
--- NOTE | 2019-08-01 07:05 | EKG ---
Test Date: 2019-07-29 Test Time: 17:03:41 Guest Services Lead: GREYSON MEASUREMENT RESULTS: Intervals: Rate: 73 UT: 138 QRSD: 84 QT: 374 QTc: 412 [place]: P: 20 UT: 138 QRS: 48 T: -50 INTERPRETIVE STATEMENTS: Normal sinus rhythm Low voltage QRS ST & T wave abnormality, consider inferolateral ischemia Abnormal ECG Compared to ECG 07/21/2019 16:26:17 Low QRS voltage now present ST (T wave) deviation now present Ventricular premature complex(es) no longer present T-wave abnormality no longer present Prolonged QT interval no longer present Possible ischemia still present Electronically Signed On 08-01-19 07:00:50 CDT by Willian Julian
== END 2019-07-29 19:00 | disposition home or self-care (01) ==
LOC: ER 16:14
DX: S70.01XA Contusion of right hip, initial encounter (principal); E78.00 Pure hypercholesterolemia, unspecified; Z95.818 Presence of other cardiac implants and grafts; I25.2 Old myocardial infarction; Z79.82 Long term (current) use of aspirin
CPT/HCPCS: 93005; 93926; 99284

== ENCOUNTER 2021-02-26 11:49 | Emergency (ER) | payer BC ==
--- OUTSIDE RECORDS SUMMARY | 2021-02-26 11:51 | XMS REPORT | Continuity of Care Document ---
:1980 Author Organization [facility] t Address [address] [place] [address] Care Team Providers Name Role Phone SONIA Attending Clinician Unavailable Huan Rogers Attending Clinician Sonia JOSEPH Attending Clinician Huan CHO Attending Clinician Unavailable Doctor Unassigned, Name Attending Clinician Unavailable Payers Payer Name Policy Type Policy Number Effective Date Expiration Date S ource [employer] [place] - [id number] 2019 00:00:00 OUT OF STATE Problems Condition Condition Condition Status Onset Resolution Last Treating Co mments Source Name Details Category Date Date Treatment Clinician Date No known No known Disease Unive rs active active ity of problems problems [facility] Allergies, Adverse Reactions, Alerts Allergy Allergy Status Severity Reaction(s) Onset Inactive Treating Comm ents Source Name Type Date Date Clinician NO KNOWN Drug Active Univers ALLERGIE Class ity of S [facility] Social History Social Habit Start Date Stop Date Quantity Comments Source Exposure to Not sure [facility]-CoV-2 [facility] (event) [place] Tobacco use and 2020-09-28 2020-09-28 Never used Universit y of exposure 00:00:00 00:00:00 [facility] Alcohol intake 2020-09-28 2020-09-28 Current drinker Unive rsity of 00:00:00 00:00:00 of alcohol [facility] (finding) [place] Sex Assigned At [birth year] Universit y of 00:00:00 00:00:00 [facility] Smoking Status Start Date Stop Date Source Unknown if ever smoked Universit y [facility] Never smoker [facility] Medications Ordered Filled Start Stop Current Ordering Indication Dosage Frequency Signature Comments Components Source Medication Medication Date Date Medication? Clinician (SIG) Name Name eldon 2020- No [id number] 40mg [facility] 09-28 [id number] ity of acetonide 17:30: 16:19 [place] (KENALOG) 00 :00 Medical injection Branch 40 mg triamcinolo 2020- No [id number] 40mg 40 mg, [facility] 09-28 [id number] Intramuscu ity of acetonide 17:30: 16:19 [place], ONCE, [place] ([place] 00 :00 1 dose, Medical injection Sat Branch 40 mg 09/28/20 at 1230, Routine triamcinolo 2020- No [id number] Apply to [facility] 09-28 [id number] area(s) 2 ity of acetonide 00:00: 04:59 (two) [place] 0.1 % 00 :00 times Medical ointment daily for Branch 5 days. Vital Signs Vital Name Observation Time Observation Value Comments Source Systolic blood 2020-09-28 16:14:00 121 [facility]Hg[facility] Diastolic blood 2020-09-28 16:14:00 90 mm[Hg] [facility] 2020-09-28 16:14:00 95 /min [facility] Body temperature 2020-09-28 16:14:00 36.89 Joana [facility] Res[facility] rate 2020-09-28 16:14:00 16 /min [facility] Body height 2020-09-28 16:14:00 157.5 cm [facility] Body weight 2020-09-28 16:14:00 70.308 kg [facility] BMI 2020-09-28 16:14:00 28.35 kg/m2 [facility] Oxygen saturation in 2020-09-28 16:14:00 98 /min [facility] blood by [facility] Pulse oximetry Branch Procedures Procedure Date / Time Performed Performing Clinician [facility] e ASSIGNMENT OF BENEFITS 2020-09-28 15:50:50 Doctor Unassigned, No [facility] Name Medical Branch Encounters Start End Encounter Admission Attending Care Care Encounter Source Date/Time Date/Time Type Type Clinicians Facility Department ID 2020-10-22 2020-10-22 Outpatient [facility] [id number] Univers 17:40:00 17:40:00 [id number] ity [facility] 2020-10-22 2020-10-22 Outpatient [facility] [id number] Univers 17:40:00 17:40:00 DAMIEN ity [facility] 2020-09-28 2020-09-28 Tate Bailey [facility] [id number] Univers 10:51:39 11:30:21 Rukhsana MorleyDamien [facility] [id number] ity of [place] [id number] [place] Professio [phone] [facility] [address] [place] [address] 2020-09-28 2020-09-28 Outpatient R TAMMIE [facility] [id number] Univers 10:40:00 10:40:00 TATE saini o f [facility] 2020-09-28 2020-09-28 Orders Doctor LILLIAN [id number] Univers 00:00:00 00:00:00 Only Unassigned, FREDY [id number] ity of [place] [facility] [id number] [place] as [phone] [facility] [address] [place] 2020-09-28 2020-09-28 Letter Doctor LILLIAN [id number] Univers 00:00:00 00:00:00 (Out) Unassigned, FREDY [id number] ity of [place] [facility] [id number] [place] [id number] [facility] [address] [place] 2020-09-28 2020-09-28 Letter Doctor LILLIAN [id number] Univers 00:00:00 00:00:00 (Out) Unassigned, FREDY [id number] ity of [place] [facility] [id number] [place] [phone] [address] Results This patient has no known results.
[2021-02-26 13:58] LABS: Urine Blood Negative (Negative); Urine Glucose Negative (Negative); Urine Protein Negative (Negative)
[2021-02-26 14:21] LABS: Absolute Lymphocytes (CBC) 2.5 K/uL (0.7-4.9); Basophils % 0.5 % (0-1.3); Hematocrit 42.9 % (36.0-45.0); Lymphocytes % 21.7 % (15.3-44.8); MPV 8.2 fL (7.6-11.3); RBC Red Blood Cell Count 4.38 M/uL (3.86-4.86)
[2021-02-26 15:08] LABS: BUN Blood Urea Nitrogen 7 mg/dL (7-18); Bicarbonate 26 mmol/L (21-32); Glucose Level 84 mg/dL (74-106); Potassium 3.7 mmol/L (3.5-5.1); Sodium Level 139 mmol/L (136-145)
[2021-02-26] MEDS ORDERED: MORPHINE 4 MG/ML SYR ONE (16:03)
--- NOTE | 2021-02-26 16:03 | RAD REPORT ---
EXAM DESCRIPTION: CT - Abdomen Pelvis W Contrast - 02/26/2021 3:26 pm CLINICAL HISTORY: Lower abdominal pain COMPARISON: none. TECHNIQUE: Computed axial tomography of the abdomen pelvis was obtained. 100 cc Isovue-300 was admin istered intravenously. Oral contrast was not requested which limits evaluation of bowel. All CT scans are performed using dose optimization technique as appropriate and may include automated exposure control or mA/KV adjustment according to patient size. FINDINGS: The liver, spleen, pancreas, adrenal and kidneys appear unremarkable. A 4.2 centimeters cystic mass right adnexal. Prominent left ovarian follicle. The wall of the sigmoid colon is thickened. Several diverticula stem from the colon. Mild to moderate stranding within the fat. No free air. Small amount of free fluid Normal appendix IMPRESSION: Mild to moderate sigmoid diverticulitis 4.2 centimeters cystic structure right adnexal probably ovarian cyst. Followup ultrasound in a couple months recommended
[2021-02-26] MEDS ORDERED: ONDANSETRON 4 MG/2 ML VIAL ONE (16:04)
--- NOTE | 2021-02-26 16:37 | ER ---
Nurse's Notes [facility] Name: Gertrude Jeter Age: 40 yrs Sex: Female : 1980 Arrival Date: 02/26/2021 Time: 11:54 Bed 11 Private MD: Diagnosis: Acute Diverticulitis Presentation: 02/26 12:12 Chief complaint: Patient states: Lower abd pain, cramping since last night. Diarrhea ll1 yesterday. Fever 100.6 last night after work. Coronavirus screen: Vaccine status: Patient reports receiving the 2nd dose of the covid vaccine. Client denies travel out of the [place] in the last 14 days. At this time, the client does not indicate any symptoms associated with coronavirus-19. Ebola Screen: Patient denies travel to an Ebola-affected area in the 21 days before illness onset. Initial Sepsis Screen: Does the patient meet any 2 criteria? No. Patient's initial sepsis screen is negative. Does the patient have a suspected source of infection? Yes: Other: pelvic pain. Risk Assessment: Do you want to hurt yourself or someone else? Patient reports no desire to harm self or others. Onset of symptoms was February 25, 2021. 12:12 Method Of Arrival: Ambulatory ll1 12:12 Acuity: KRISH 3 ll1 Triage Assessment: 13:53 General: Appears in no apparent distress. Behavior is calm, cooperative, appropriate jh5 for age. Pain: Denies pain. GI: Reports lower abdominal pain, cramping, diarrhea. Historical: - Allergies: 12:14 No Known Allergies; ll1 - PMHx: 12:14 GERD; High Cholesterol; Myocardial infarction; ll1 - PSHx: 12:14 ablation; 5 heart stents; Tonsillectomy; Adenoid excision; ll1 - Immunization history:: Client reports receiving the 2nd dose of the Covid vaccine. - Social history:: Smoking status: Patient reports the use of cigarette tobacco products, smokes one-half pack cigarettes per day. Screenin:53 Abuse screen: Denies threats or abuse. Denies injuries from another. Nutritional jh5 screening: No deficits noted. Tuberculosis screening: No symptoms or risk factors identified. Fall Risk None identified. Vital Signs: 12:12 BP 168 / 108; Pulse 101; Resp 17; Temp 99.1(O); Pulse Ox 100% ; Weight 70.31 kg; Height ll1 5 ft. 2 in. (157.48 cm); Pain 8/10; 12:12 Body Mass Index 28.35 (70.31 kg, 157.48 cm) ll1 ED Course: 11:54 Patient arrived in ED. am2 12:14 Triage completed. ll1 12:16 Arm band placed on. 1 13:51 Kenneth Contreras PA [facility] 13:51 Peter Dodge MD is Attending Physician. [facility] 13:53 Sharron Head, RN is Primary Nurse. [facility] 13:53 Patient has correct armband on for positive identification. Bed in low position. Call [facility] light in reach. Side rails up X 1. 15:26 CT Abd/Pelvis - IV Contrast Only In Process Unspecified. EDMS Administered Medications: 16:16 Drug: morphine 4 mg Route: IVP; Site: right antecubital; [facility] 16:16 Drug: Zofran (Ondansetron) 4 mg Route: IVP; Site: right antecubital; [facility] 16:49 Drug: LevaQUIN (levofloxacin) 750 mg Route: PO; [facility] 16:49 Drug: Flagyl (metroNIDAZOLE) 500 mg Route: PO; [facility] Outcome: 16:36 Discharge ordered by . [facility] 16:49 Patient left the ED. [facility] Signatures: Dispatcher [employer] EDMS Kenneth Contreras PA PA jmm Moreno, Amanda am2 Kathleen Hsieh RN RN 1 Sharron Head, RN RN [facility]
--- NOTE | 2021-02-26 16:37 | EDPHYS ---
Physician Documentation [facility] Name: Gertrude Jeter Age: 40 yrs Sex: Female : 1980 Arrival Date: 02/26/2021 Time: 11:54 Bed 11 Private MD: ED Physician Peter Dodge HPI: 02/26 16:31 This 40 yrs old Female presents to ER via Ambulatory with complaints of Abdominal Pain, jmm Pelvic Pain, Fever. 16:31 The patient presents with abdominal pain. Onset: The symptoms/episode began/occurred jmm gradually, 1 day(s) ago. The symptoms radiate to pelvis. Associated signs and symptoms: Pertinent positives: diarrhea, fever. The symptoms are described as achy. Modifying factors: The symptoms are alleviated by nothing. Historical: - Allergies: 12:14 No Known Allergies; ll1 - PMHx: 12:14 GERD; High Cholesterol; Myocardial infarction; ll1 - PSHx: 12:14 ablation; 5 heart stents; Tonsillectomy; Adenoid excision; ll1 - Immunization history:: Client reports receiving the 2nd dose of the Covid vaccine. - Social history:: Smoking status: Patient reports the use of cigarette tobacco products, smokes one-half pack cigarettes per day. ROS: 16:31 Constitutional: Negative for fever, chills, and weight loss, Cardiovascular: Negative jmm for chest pain, palpitations, and edema, Respiratory: Negative for shortness of breath, cough, wheezing, and pleuritic chest pain. 16:31 Abdomen/GI: Positive for abdominal pain. 16:31 All other systems are negative. Exam: 16:31 Constitutional: This is a well developed, well nourished patient who is awake, alert, jmm and in no acute distress. Head/Face: atraumatic. Eyes: EOMI, no conjunctival erythema appreciated ENT: Moist Mucus Membranes Neck: Trachea midline, Supple Chest/axilla: Normal chest wall appearance and motion. Cardiovascular: Regular rate and rhythm. No edema appreciated Respiratory: Normal respirations, no respiratory distress appreciated Abdomen/GI: Non distended, soft Back: Normal ROM Skin: General appearance color normal 16:31 MS/ Extremity: Moves all extremities, no obvious deformities appreciated, no edema noted to the lower extremities Neuro: Awake and alert, normal gait Psych: Behavior is normal, Mood is normal, Patient is cooperative and pleasant 16:31 Abdomen/GI: Inspection: abdomen appears normal, Bowel sounds: normal, Palpation: soft, mild abdominal tenderness, in the suprapubic area and left lower quadrant. 16:31 Musculoskeletal/extremity: ROM: intact in all extremities. Vital Signs: 12:12 BP 168 / 108; Pulse 101; Resp 17; Temp 99.1(O); Pulse Ox 100% ; Weight 70.31 kg; Height ll1 5 ft. 2 in. (157.48 cm); Pain 8/10; 12:12 Body Mass Index 28.35 (70.31 kg, 157.48 cm) ll1 MDM: 14:26 Patient medically screened. [facility] 16:34 Data reviewed: vital signs, nurses notes. Counseling: I had a detailed discussion with [facility] the patient and/or guardian regarding: the historical points, exam findings, and any diagnostic results supporting the discharge/admit diagnosis, lab results, radiology results, the need for outpatient follow up, to return to the emergency department if symptoms worsen or persist or if there are any questions or concerns that arise at home. ED course: Patient is alert nontoxic in appearance in the ED. Patient tolerates p.o. Patient advised to follow-up with GI or PCP and otherwise given strict return precautions. Patient understood agrees plan of care.. 02/26 13:57 Order name: Urine Dipstick-Ancillary; Complete Time: 14:58 EDPA 02/26 13:57 Order name: Urine --Ancillary (enter results); Complete Time: 14:58 em1 02/26 14:07 Order name: CBC with Diff; Complete Time: 14:58 ss 02/26 14:07 Order name: BMP; Complete Time: 15:10 ss 02/26 14:26 Order name: CT Abd/Pelvis - IV Contrast Only; Complete Time: 16:05 [facility] Administered Medications: 16:16 Drug: morphine 4 mg Route: IVP; Site: right antecubital; [facility] 16:16 Drug: Zofran (Ondansetron) 4 mg Route: IVP; Site: right antecubital; [facility] 16:49 Drug: LevaQUIN (levofloxacin) 750 mg Route: PO; 5 16:49 Drug: Flagyl (metroNIDAZOLE) 500 mg Route: PO; 5 Disposition Summary: 02/26/21 16:36 Discharge Ordered Location: Home [facility] Condition: Stable [facility] Diagnosis - Acute Diverticulitis [facility] Followup: [facility] - With: Private Physician - When: 2 - 3 days - Reason: Recheck today's complaints, Continuance of care, Re-evaluation by your physician Discharge Instructions: - Discharge Summary Sheet [facility] - Diverticulitis [facility] Forms: - Medication Reconciliation Form [facility] - Thank You Letter [facility] - Antibiotic Education [facility] - Prescription Opioid Use [facility] Prescriptions: - ondansetron 4 mg Oral tablet,disintegrating - take 1 tablet by ORAL route every 4-6 hours; 20 tablet; Refills: 0, Product [facility] Selection Permitted - Flagyl 500 mg Oral Tablet - take 1 tablet by ORAL route every 6 hours for 10 days; 40 tablet; Refills: 0, [facility] Product Selection Permitted - Ultracet 37.5-325 mg Oral Tablet - take 1 tablet by ORAL route every 6 hours - for up to 5 days; do not exceed 8 jmm tablets per day.; 12 tablet; Refills: 0, Product Selection Permitted - levofloxacin 750 mg Oral Tablet - take 1 tablet by ORAL route once daily; 10 tablet; Refills: 0, Product jm Selection Permitted Addendum: 03/01/2021 07:16 Co-signature as Attending Physician, Peter Dodge MD I agree with the assessment and r n plan of care. Attestation: The patient's history, exam findings, diagnostics, and a summary of any interventions or procedures was reviewed in detail with Kenneth HAUSER. Signatures: Dispatcher [employer] Kenneth Barkley PA PA jmm Nieto, Roman, MD MD rn Lewis, Lynsay, RN RN ll1 Sharron Head RN RN jh5
[2021-02-26] MEDS ORDERED: levoFLOXacin 500 MG TAB ONE (16:42)
[2021-02-26] MEDS ORDERED: metroNIDAZOLE 500 MG TABLET ONE (16:42)
[2021-02-26 16:56] VITALS: BP 168/108; TEMP 99.1; O2SAT 100
== END 2021-02-26 16:49 | disposition home or self-care (01) ==
LOC: ER 11:49
DX: K57.92 Diverticulitis of intestine, part unspecified, without perforation or abscess without bleeding (principal); K21.9 Gastro-esophageal reflux disease without esophagitis; E78.00 Pure hypercholesterolemia, unspecified; I25.2 Old myocardial infarction; F17.210 Nicotine dependence, cigarettes, uncomplicated
CPT/HCPCS: 85025; 80048; 36415; 81025; 81003; 74177; 96375; 96374; 99283; Q9967; J2405

== ENCOUNTER 2021-09-10 23:17 | Emergency (ER) | payer BC ==
--- NOTE | 2021-09-10 23:38 | ER ---
Nurse's Notes [facility] Name: Gertrude Jeter Age: 41 yrs Sex: Female : 1980 Arrival Date: 09/10/2021 Time: 23:19 Bed Waiting Private MD: Diagnosis: Chest pain, unspecified Presentation: 09/10 23:34 Chief complaint: Patient states: Chest pain began 30 min ago. Pt reports previous ld1 cardiac history. Coronavirus screen: At this time, the client does not indicate any symptoms associated with coronavirus-19. Ebola Screen: No symptoms or risks identified at this time. Initial Sepsis Screen: Does the patient meet any 2 criteria? No. Patient's initial sepsis screen is negative. Does the patient have a suspected source of infection? No. Patient's initial sepsis screen is negative. Risk Assessment: Do you want to hurt yourself or someone else? Patient reports no desire to harm self or others. Onset of symptoms was September 10, 2021. 23:34 Method Of Arrival: Ambulatory ld1 23:34 Acuity: KRISH 3 ld1 Triage Assessment: 23:35 General: Appears in no apparent distress. comfortable, Behavior is calm, cooperative, ld1 appropriate for age. Pain: Complains of pain in chest Pain does not radiate. Pain currently is 8 out of 10 on a pain scale. EENT: No signs and/or symptoms were reported regarding the EENT system. Neuro: Level of Consciousness is awake, alert, obeys commands, Oriented to person, place, time, situation. Cardiovascular: Capillary refill < 3 seconds Patient's skin is warm and dry. Rhythm is sinus rhythm. Respiratory: Airway is patent Respiratory effort is even, unlabored. GI: Abdomen is round non-distended. : No signs and/or symptoms were reported regarding the genitourinary system. Derm: No signs and/or symptoms reported regarding the dermatologic system. Musculoskeletal: No signs and/or symptoms reported regarding the musculoskeletal system. 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 - Social history:: Smoking status: Patient denies any tobacco usage or history of. Patient/guardian denies using alcohol. Assessment: 23:36 Reassessment: ERP in triage - EKG shown to provider. Pt does not want to stay. States ld1 "I promise I will follow up with my medical detail representative." Pt leaving at this time. Vital Signs: 23:34 BP 176 / 102; Pulse 96; Resp 18; Temp 98.1(TE); Pulse Ox 97% on R/A; Weight 74.84 kg; ld1 Height 5 ft. 4 in. (162.56 cm); Pain 8/10; 23:34 Body Mass Index 28.32 (74.84 kg, 162.56 cm) ld1 ED Course: 23:19 Patient arrived in ED. bp1 23:35 Triage completed. ld1 23:35 Arm band placed on right wrist. EKG completed in triage. Results shown to MD. ld1 23:36 Yaz Murillo FNP-C is [facility]. kb 23:36 Rico Espinoza MD is Attending Physician. kb Administered Medications: No medications were administered Outcome: 23:37 Patient left the ED. ld1 23:53 Discharge ordered by MD. kb 23:53 Patient left the ED. kb Signatures: Yaz Murillo FNP-C FNP-Elvi Perkins Lauren, RN RN ld1
--- NOTE | 2021-09-10 23:53 | EDPHYS ---
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 - Social history:: Smoking status: Patient denies any tobacco usage or history of. Patient/guardian denies using alcohol. Vital Signs: 23:34 BP 176 / 102; Pulse 96; Resp 18; Temp 98.1(TE); Pulse Ox 97% on R/A; Weight 74.84 kg; ld1 Height 5 ft. 4 in. (162.56 cm); Pain 8/10; 23:34 Body Mass Index 28.32 (74.84 kg, 162.56 cm) ld1 MDM: 23:36 Patient medically screened. kb Administered Medications: No medications were administered Disposition Summary: 09/10/21 23:53 Discharge Ordered Location: Home kb Condition: Stable kb Diagnosis - Chest pain, unspecified kb Followup: kb - With: Emergency Department - When: As needed - Reason: Worsening of condition Followup: kb - With: Private Physician - When: 2 - 3 days - Reason: Recheck today's complaints, Continuance of care, Re-evaluation by your physician Discharge Instructions: - Discharge Summary Sheet kb - Nonspecific Chest Pain, Adult, [id number] kb Forms: - Medication Reconciliation Form kb - Thank You Letter kb - Antibiotic Education kb - Prescription Opioid Use kb Signatures: Yaz Murillo FNP-C CEMENT MASON HELPER-Leleb Renetta Feldman RN RN ld1 Corrections: (The following items were deleted from the chart) 23:52 23:37 post triage evaluation and consult ld1 kb 23:52 23:37 unknown ld1 kb
[2021-09-11 01:32] VITALS: BP 176/102; TEMP 98.1; O2SAT 97
--- NOTE | 2021-09-11 12:17 | EKG ---
Test Date: 2021-09-10 Test Time: 23:24:15 Carbide Powder Processor: TED MEASUREMENT RESULTS: Intervals: Rate: 92 IN: 114 QRSD: 88 QT: 366 QTc: 452 [place]: P: 11 IN: 114 QRS: 78 T: 50 INTERPRETIVE STATEMENTS: Normal sinus rhythm Normal ECG Compared to ECG 07/29/2019 17:03:41 ST (T wave) deviation no longer present Possible ischemia no longer present Electronically Signed On 09-11-21 12:16:28 CDT by Shabbir Duggan
== END 2021-09-10 23:53 | disposition home or self-care (01) ==
LOC: ER 23:17
DX: R07.9 Chest pain, unspecified (principal); I25.2 Old myocardial infarction; E78.00 Pure hypercholesterolemia, unspecified; Z95.818 Presence of other cardiac implants and grafts
CPT/HCPCS: 93005

== ENCOUNTER 2022-08-24 18:40 | Emergency (ER) | payer BC ==
--- OUTSIDE RECORDS SUMMARY | 2022-08-24 18:44 | XMS REPORT | Continuity of Care Document ---
:1980 Author Organization [facility] t Address [address] [place] [address] [place] [id number] Care Team Providers Name Role Phone CONRAD LOWE Primary Care Physician Unavailable Peyman JOSEPH, Damien Attending Clinician Unknown, Attending Attending Clinician Unavailable DAMIEN MORLEY Attending Clinician Unavailable Doctor Unassigned, [place] Attending Clinician Unavailable Leni Somers RN Attending Clinician Unavailable Only, Ang Db Test Attending Clinician Unavailable JESÚS ORO Attending Clinician Unavailable Renata Veras RN Attending Clinician Unavailable Shorty CHEMICAL LABORATORY TESTER, Jesús Attending Clinician ORALIA JAIN Attending Clinician Unavailable Susy CHEMICAL LABORATORY TESTEROralia Attending Clinician Tate Rogers Attending Clinician TATE MANN Attending Clinician Unavailable Payers Payer Name Policy Type Policy Number Effective Date Expiration Date S ource Problems Condition Condition Condition Status Onset Resolution Last Treating Co mments Source Name Details Category Date Date Treatment Clinician Date No known No known Disease Unive rs active active ity of problems problems [facility] Allergies, Adverse Reactions, Alerts Allergy Allergy Status Severity Reaction(s) Onset Inactive Treating Comm ents Source Name Type Date Date Clinician NO KNOWN Drug Active Univers ALLERGIE Class ity of S [facility] Social History Social Habit Start Date Stop Date Quantity Comments Source Exposure to 2022-06-30 2022-07-10 Not sure [facility]-CoV-2 00:00:00 15:23:00 [facility] (event) [place] Alcohol intake 2022-07-10 2022-07-10 Current drinker Unive rsity of 00:00:00 00:00:00 of alcohol [place] [facility] (finding) [facility] Tobacco use and 2020-09-28 2020-09-28 Smokeless tobacco Un iversity of exposure 00:00:00 00:00:00 non-user [facility] Sex Assigned At [birth year] Universit y of 00:00:00 00:00:00 [facility] Smoking Status Start Date Stop Date Source Unknown if ever smoked [facility] Never smoked tobacco [facility] Medications Ordered Filled Start Stop Current Ordering Indication Dosage Frequency Signature Comments Components Source Medication Medication Date Date Medication? Clinician (SIG) Name Name ibuprofen Yes [id number] 600mg Take 1 Univers 600 mg 4-28 4 tablet by ity of tablet 00:00: mouth [place] [id number] every 6 Medical (six) [place] hours as needed for Pain (scale 1-3) or Pain (scale 4-6). tiZANidine Yes [id number] 2mg Take 1 Univers 2 mg 4-28 4 capsule by ity of capsule 00:00: mouth in [place] 00 the Medical morning Branch and 1 capsule at noon and 1 capsule in the evening. No known No No known Unive rs medications 7-13 medication it y of 15:04: s [address] No known No No known Unive rs medications 7-13 medication it y of 15:04: [address] No known No No known Unive rs medications 7-13 medication it y of 15:04: [address] No known No No known Unive rs medications -13 medication it y of 15:04: [address] No known No No known Unive rs medications 7-13 medication it y of 15:04: [place] [address] Medical [place] triamcinolo 2020- No [id number] 40mg Univers ne 09-28 [id number] ity of acetonide 17:30: 16:19 [place] (KENALOG) 00 :00 Medical injection Branch 40 mg triamcinolo 2020- No [id number] 40mg 40 mg, Univers ne 09-28 [id number] Intramuscu ity of acetonide 17:30: 16:19 [place], ONCE, [place] ([place] 00 :00 1 dose, Medical injection Sat Branch 40 mg 09/28/20 at 1230, Routine No known No [facility] medications 09-28 ity of 11:14: [address] triamcinolo 2020- No [id number] Apply to [facility] 09-28 [id number] area(s) 2 ity of acetonide 00:00: 04:59 (two) [place] 0.1 % 00 :00 times Medical ointment daily for Branch 5 days. Vital Signs Vital Name Observation Time Observation Value Comments Source Systolic blood 2022-07-10 20:30:00 119 mm[Hg] Univer sity of [facility] Diastolic blood 2022-07-10 20:30:00 88 [facility]Hg[facility] height 2022-07-10 20:27:00 157.5 cm [facility] Body weight 2022-07-10 20:27:00 72.235 kg [facility] BMI 2022-07-10 20:27:00 29.13 kg/m2 [facility] Oxygen saturation in 2022-07-10 20:27:00 97 /min [facility] Arterial blood by [facility] Pulse oximetry [place] Heart rate 2022-07-10 20:27:00 95 /min [facility] Body temperature 2022-07-10 20:27:00 37.11 Joana [facility] Respiratory rate 2022-07-10 20:27:00 16 /min [facility] Systolic blood 2020-09-28 16:14:00 121 mm[Hg] Univer sity of [facility] Diastolic blood 2020-09-28 16:14:00 90 mm[Hg] [facility] Heart rate 2020-09-28 16:14:00 95 /min [facility] Body temperature 2020-09-28 16:14:00 36.89 Joana [facility] Respiratory rate 2020-09-28 16:14:00 16 /min [facility] Body height 2020-09-28 16:14:00 157.5 cm [facility] Body weight 2020-09-28 16:14:00 70.308 kg [facility] BMI 2020-09-28 16:14:00 28.35 kg/m2 [facility] Oxygen saturation in 2020-09-28 16:14:00 98 /min University Arterial blood by [facility] Pulse oximetry [place] Procedures Procedure Date / Time Performed Performing Clinician Clarisa gilson [facility] [[email or web address] PATIENT FINANCIAL 2022-07-10 20:30:09 Doctor Unassigned, No [facility] POLICY Name [facility] CONSENT/REFUSAL FOR 2022-02-03 23:51:24 Doctor Unassigned, No [facility] DIAGNOSIS AND Name [facility] TREATMENT ASSIGNMENT OF BENEFITS 2022-02-03 23:51:10 Doctor Unassigned, No [facility] ASSIGNMENT OF BENEFITS 2020-09-28 15:50:50 Doctor Unassigned, No [facility] Encounters Start End Encounter Admission Attending Care Care Encounter Source Date/Time Date/Time Type Type Clinicians Facility Department ID 2022-07-10 2022-07-10 Damien Talamantes [facility] [[email or web address]] 1.2.840.114 [id number] Univers 15:20:00 15:40:00 Care Unknown, Attending HEALTH 350.1.13.10 ity [facility] 4.2.7.2.686 [place] YO?BLEA [phone] [address] MEDICAL OFFICE BUILDING 2022-07-10 2022-07-10 Outpatient R PEYMAN [facility] [id number] Univers 15:20:00 15:20:00 DAMIEN saini [facility] 2022-07-10 2022-07-10 Orders Doctor SNYDER 1.2.840.114 [id number] Univers 00:00:00 00:00:00 Only UnassignedFREDY 350.1.13.10 ity of [place] [facility] 4.2.7.2.686 [place] [id number] [place] [address] Branch 2022-02-04 2022-02-04 LILLIAN Pope 1.2.840.114 [id number] Univers 00:00:00 00:00:00 (Out) Leni DANIEL 350.1.13.10 it y of [facility] 4.2.7.2.686 [place] [id number] [facility] 019 [place] 2022-02-03 2022-02-03 Laboratory Only, Ang Db Test [facility] [[email or web address]] 1.2.8 40.114 [id number] Univers 18:00:00 18:15:00 Only Unknown, Attending HEALTH 350.1.13.10 ity of [place] 4.2.7.2.686 [place] YO?BLEA [id number] [address] MEDICAL OFFICE BUILDING 2022-02-03 2022-02-03 Outpatient R SHORTY [facility] [id number] Univers 18:00:00 18:00:13 JESÚS [facility] 2022-02-03 2022-02-03 Orders Doctor SNYDER 1.2.840.114 [id number] Univers 00:00:00 00:00:00 Only Unassigned, FREDY 350.1.13.10 ity of [place] [facility] 4.2.7.2.686 [place] [id number] [facility] 009 [place] 2021-09-25 2021-09-25 Telephone LILLIAN Veras [id number] Univers 00:00:00 00:00:00 Renata DANIEL 350.1.13.10 i ty of [facility] 4.2.7.2.686 [place] [id number] [facility] 019 [place] 2021-09-24 2021-09-24 Outpatient R SHORTY [facility] [id number] Univers 14:45:00 15:11:56 [facility] 2021-09-24 2021-09-24 Laboratory Only, Ang Db Test [facility] [[email or web address]] 1.2.8 40.114 [id number] Univers 14:45:00 15:00:00 Only Jesús Oro [facility] 350.1.13.10 ity of [place] 4.2.7.2.686 [place] YO?BLEA [id number] [address] MEDICAL OFFICE [facility] 2021-09-23 2021-09-23 Outpatient R SHORTY [facility] [id number] Univers 15:15:00 15:15:00 RANMINESH itjoon [facility] 2021-08-14 2021-08-14 Outpatient R SUSY [facility] [id number] Univers 10:00:00 10:19:26 ORALIA itjoon [facility] 2021-08-14 2021-08-14 Laboratory Only, Ang Db Test [facility] [[email or web address]] 1.2.8 40.114 [id number] Univers 10:00:00 10:15:00 Only Oralia Jain [facility] 350.1.13.10 ity of [facility] 4.2.7.2.686 [place] YO?BLEA [id number] Id dicliborio KNEY [address] [place] MEDICAL OFFICE BUILDING 2020-10-22 2020-10-22 Outpatient R PEYMAN [facility] [id number] Univers 17:40:00 17:40:00 DAMIEN saini [facility] 2020-09-28 2020-09-28 Urgent Tate Mann [facility] [[email or web address]] 1.2.840 .114 [id number] Univers 10:51:39 11:30:21 Rukhsana Morley Damien [facility] 350.1.13.10 ity of [place] 4.2.7.2.686 [place] Professio [id number] [facility] 044 [place] Office [address] 2020-09-28 2020-09-28 Outpatient R TAMMIE [facility] [id number] Univers 10:40:00 10:40:00 TATE saini o f [facility] 2020-09-28 2020-09-28 Orders Doctor SNYDER 1.2.840.114 [id number] Univers 00:00:00 00:00:00 Only Unassigned, FREDY 350.1.13.10 ity of [place] [facility] 4.2.7.2.686 [place] as [phone] [facility] 009 [place] 2020-09-28 2020-09-28 Letter Doctor LILLIAN 1.2.840.114 [id number] Univers 00:00:00 00:00:00 (Out) Unassigned, FREDY 350.1.13.10 ity of [place] [facility] 4.2.7.2.686 [place] as [id number] [facility] 044 [place] 2020-09-28 2020-09-28 Letter Doctor LILLIAN 1.2.840.114 [id number] Univers 00:00:00 00:00:00 (Out) Unassigned, FREDY 350.1.13.10 ity of [place] [facility] 4.2.7.2.686 [place] [phone] [place] [address] Branch Results This patient has no known results.
[2022-08-24 19:57] LABS: Absolute Lymphocytes (CBC) 3.8 K/uL (0.7-4.9); Hematocrit 42.7 % (36.0-45.0); Lymphocytes % 41.2 % (15.3-44.8); MCV 96.7 fL (80-100); MPV 8.1 fL (7.6-11.3); RBC Red Blood Cell Count 4.42 M/uL (3.86-4.86)
[2022-08-24 20:04] LABS: Protime INR 0.95
[2022-08-24] MEDS ORDERED: ACETAMINOPHEN 500 MG TAB ONE (20:16)
[2022-08-24] MEDS ORDERED: METOPROLOL TARTRATE 5 MG/5 ML INJ IV ONE ×2 (20:16→20:36)
[2022-08-24 20:35] LABS: ALT/SGPT 39 U/L (13-56); AST/SGOT 19 U/L (15-37); Alkaline Phosphatase 90 U/L (45-117); BUN Blood Urea Nitrogen 13 mg/dL (7-18); Bicarbonate 25 mEq/L (21-32); Bilirubin Total 0.2 mg/dL (0.2-1.0); Glomerular Filtration Rate 104 ml/min (=/>90); Glucose Level 122 mg/dL (74-106); Magnesium 2.1 mg/dL (1.6-2.4); NT PRO-BNP 331 pg/mL (<125); Potassium 3.4 mEq/L (3.5-5.1); Protein, Total 7.9 g/dL (6.4-8.2); Sodium Level 137 mEq/L (136-145); Troponin High Sensitivity 4.1 pg/mL (<58.9)
[2022-08-24 20:36] LABS: Bilirubin Direct < 0.1 mg/dL (0-0.2); Bilirubin Indirect, Calculated ND mg/dL (0.2-0.8)
--- NOTE | 2022-08-24 20:45 | RAD REPORT ---
EXAM DESCRIPTION: Bobbi Single View08/24/2022 7:55 pm CLINICAL HISTORY: Chest pain COMPARISON: 2019 FINDINGS: The lungs appear clear of acute infiltrate. The heart is normal size IMPRESSION: No acute abnormalities displayed
--- NOTE | 2022-08-24 21:24 | EDPHYS ---
Physician Documentation [facility] Name: Gertrude Jeter Age: 42 yrs Sex: Female : 1980 Arrival Date: 08/24/2022 Time: 18:40 Bed 25 Private MD: Jesse Horner ED Physician Philip Gupta HPI: 08/24 19:30 This 42 yrs old Female presents to ER via Ambulatory with complaints of Shortness Of kdr Breath. 19:31 The patient states that she has been short of breath for the last 2 days. She states kdr that when she gets short of breath she also gets very diaphoretic. She has a history of prior MIs and 5 cardiac stents placed. She has been seen by Dr. Morris. Patient states that the discomfort she is having and shortness of breath is not like her prior MIs. Now. Onset: The symptoms/episode began/occurred suddenly, 2 day(s) ago. Severity of symptoms: At their worst the symptoms were moderate in the emergency department the symptoms have improved mildly. The patient has not experienced similar symptoms in the past. The patient has not recently seen a physician. 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 - Social history:: Smoking status: Patient reports the use of cigarette tobacco products, smokes one-half pack cigarettes per day. ROS: 19:31 Constitutional: Negative for fever, chills, and weight loss, Eyes: Negative for injury, kdr pain, redness, and discharge, ENT: Negative for injury, pain, and discharge, Neck: Negative for injury, pain, and swelling, Abdomen/GI: Negative for abdominal pain, nausea, vomiting, diarrhea, and constipation, Back: Negative for injury and pain, : Negative for injury, bleeding, discharge, and swelling, MS/Extremity: Negative for injury and deformity, Neuro: Negative for headache, weakness, numbness, tingling, and seizure activity. Psych: Negative for depression, anxiety, suicide ideation, homicidal ideation, and hallucinations, Allergy/Immunology: Negative for hives, rash, and allergies, Endocrine: Negative for neck swelling, polydipsia, polyuria, polyphagia, and marked weight changes, Hematologic/Lymphatic: Negative for swollen nodes, abnormal bleeding, and unusual bruising. 19:31 Cardiovascular: Positive for chest pain, Negative for edema, orthopnea, palpitations, paroxysmal nocturnal dyspnea, acute changes. 19:31 Respiratory: Positive for cough, dyspnea on exertion, shortness of breath, on exertion. Negative for hemoptysis, orthopnea. 19:31 Skin: Positive for diaphoresis. Exam: 19:31 Constitutional: This is a well developed, well nourished patient who is awake, alert, kdr and in no acute distress. Head/Face: Normocephalic, atraumatic. Eyes: Pupils equal round and reactive to light, extra-ocular motions intact. Lids and lashes normal. Conjunctiva and sclera are non-icteric and not injected. Cornea within normal limits. Periorbital areas with no swelling, redness, or edema. Neck: Trachea midline, no thyromegaly or masses palpated, and no cervical lymphadenopathy. Supple, full range of motion without nuchal rigidity, or vertebral point tenderness. No Meningismus. Chest/axilla: Normal chest wall appearance and motion. Nontender with no deformity. No lesions are appreciated. Cardiovascular: Regular rate and rhythm with a normal S1 and S2. No gallops, murmurs, or rubs. Normal PMI, no JVD. No pulse deficits. Respiratory: Lungs have equal breath sounds bilaterally, clear to auscultation and percussion. No rales, rhonchi or wheezes noted. No increased work of breathing, no retractions or nasal flaring. Abdomen/GI: Soft, non-tender, with normal bowel sounds. No distension or tympany. No guarding or rebound. No evidence of tenderness throughout. Back: No spinal tenderness. No costovertebral tenderness. Full range of motion. Skin: Warm, dry with normal turgor. Normal color with no rashes, no lesions, and no evidence of cellulitis. MS/ Extremity: Pulses equal, no cyanosis. Neurovascular intact. Full, normal range of motion. Neuro: Awake and alert, GCS 15, oriented to person, place, time, and situation. Cranial nerves II-XII grossly intact. Motor strength 5/5 in all extremities. Sensory grossly intact. Cerebellar exam normal. Normal gait. Psych: Awake, alert, with orientation to person, place and time. Behavior, mood, and affect are within normal limits. Vital Signs: 19:00 BP 163 / 124; Pulse 91; Resp 19; Temp 97.9; Pulse Ox 96% on R/A; Weight 70.31 kg; jl7 Height 5 ft. 2 in. ; Pain 6/10; 19:53 BP 189 / 102; Pulse 83; Resp 18; Pulse Ox 99% on R/A; mb9 20:04 BP 178 / 104; Pulse 85; Resp 17; Pulse Ox 98% on R/A; mb9 20:14 BP 181 / 102; Pulse 87; Resp 18; Pulse Ox 99% on R/A; mb9 20:22 BP 187 / 104; Pulse 79; Resp 18; Pulse Ox 95% on R/A; mb9 20:37 BP 137 / 96; Pulse 73; Resp 16; Pulse Ox 97% on R/A; mb9 21:28 BP 135 / 84; Pulse 79; Resp 17; Pulse Ox 100% on R/A; mb9 19:00 Body Mass Index 28.35 (70.31 kg, 157.48 cm) jl7 19:00 Pain Scale: Adult jl7 MDM: 19:31 Data reviewed: vital signs, nurses notes, lab test result(s), radiologic studies. kdr 20:27 Patient medically screened. rt 21:23 Differential Diagnosis Acute coronary syndrome, acute bronchitis, pneumonia, rt pneumothorax, pulmonary embolism. Consideration of Admission/Observation Escalation of care including admission/observation considered. Discussed findings with patient, offered further treatments, patient states that she wishes to go home at this time follow-up with cardiology, strict return precautions were given to patient, she is comfortable with this plan.. Independent interpretation of the following test(s) in the Emergency Department X-Ray: My interpretation is No consolidation seen on interpretation of the x-ray images. Test considered but Not performed: CT: D-dimer negative, CT angiogram not indicated. Counseling: I had a detailed discussion with the patient and/or guardian regarding: the historical points, exam findings, and any diagnostic results supporting the discharge/admit diagnosis, the presence of at least one elevated blood pressure reading (>120/80) during this emergency department visit, lab results, radiology results, to return to the emergency department if symptoms worsen or persist or if there are any questions or concerns that arise at home, smoking cessation. Response to treatment: the patient's symptoms have mildly improved after treatment. 08/24 19:20 Order name: D-Dimer; Complete Time: 20:29 [facility] 08/24 19:20 Order name: Basic Metabolic Panel; Complete Time: 20:38 [facility] 08/24 19:20 Order name: CBC with Diff; Complete Time: 20:29 kdr 08/24 19:20 Order name: LFT's; Complete Time: 20:38 kdr 08/24 19:20 Order name: Magnesium; Complete Time: 20:38 [facility] 08/24 19:20 Order name: NT PRO-BNP; Complete Time: 20:38 [facility] 08/24 19:20 Order name: PT-INR; Complete Time: 20:29 [facility] 08/24 19:20 Order name: Troponin HS; Complete Time: 20:38 [facility] 08/24 19:20 Order name: XRAY Chest (1 view); Complete Time: 20:53 kdr 08/24 19:20 Order name: EKG; Complete Time: 19:21 kdr 08/24 19:20 Order name: Cardiac monitoring; Complete Time: 19:51 [facility] 08/24 19:20 Order name: EKG - Nurse/Tech; Complete Time: 19:51 [facility] 08/24 19:20 Order name: IV Saline Lock; Complete Time: 19:51 [facility] 08/24 19:20 Order name: Labs collected and sent; Complete Time: 19:51 [facility] 08/24 19:20 Order name: O2 Per Protocol; Complete Time: 19:51 kdr 08/24 19:20 Order name: O2 Sat Monitoring; Complete Time: 19:51 [facility] 08/24 19:20 Order name: VS Recheck; Complete Time: 19:51 kdr Administered Medications: 20:14 Drug: Metoprolol IVP 5 mg Route: IVP; Site: left forearm; mb9 20:14 Drug: Acetaminophen PO 1000 mg Route: PO; mb9 20:32 Follow up: Response: No adverse reaction mb9 20:22 Drug: Metoprolol IVP 5 mg Route: IVP; Site: left forearm; mb9 Disposition Summary: 08/24/22 21:23 Discharge Ordered Location: Home rt Problem: new rt Symptoms: have improved rt Condition: Stable rt Diagnosis - Dyspnea rt Followup: rt - With: Willian Julian MD - When: 2 - 3 days - Reason: Discharge Instructions: - Discharge Summary Sheet mb9 - Shortness of Breath, Adult rt Forms: - Work release form mb9 - Medication Reconciliation Form rt - Thank You Letter rt - Antibiotic Education rt - Prescription Opioid Use rt Signatures: Dispatcher [employer] EDRico Son MD MD kdr Abraham Hammond RN RN jl7 Rebecca Gonzalez RN RN mb9 Philip Gupta MD MD rt
--- NOTE | 2022-08-24 21:24 | ER ---
Nurse's Notes [facility] Name: Gertrude Jeter Age: 42 yrs Sex: Female : 1980 Arrival Date: 08/24/2022 Time: 18:40 Bed 25 Private MD: Jesse Horner Diagnosis: Dyspnea Presentation: 08/24 19:00 Chief complaint: Patient states: SOB x 2 days, hx of CA with 5 cardiac stents placed. jl7 Coronavirus screen: At this time, the client does not indicate any symptoms associated with coronavirus-19. Ebola Screen: No symptoms or risks identified at this time. Initial Sepsis Screen: Does the patient meet any 2 criteria? No. Patient's initial sepsis screen is negative. Does the patient have a suspected source of infection? No. Patient's initial sepsis screen is negative. Risk Assessment: Do you want to hurt yourself or someone else? Patient reports no desire to harm self or others. 19:00 Method Of Arrival: Ambulatory [facility] 19:00 Acuity: KRISH 2 jl7 19:00 Onset of symptoms was August 22, 2022. 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 - Social history:: Smoking status: Patient reports the use of cigarette tobacco products, smokes one-half pack cigarettes per day. Screenin:53 [facility] ED Fall Risk Assessment (Adult) History of falling in the last 3 months, mb9 including since admission No falls in past 3 months (0 pts) Confusion or Disorientation No (0 pts) Intoxicated or Sedated No (0 pts) Impaired Gait No (0 pts) Mobility Assist Device Used No (0 pt) Altered Elimination No (0 pt) Score/Fall Risk Level 0 - 2 = Low Risk Oriented to surroundings, Maintained a safe environment, Educated pt \T\ family on fall prevention, incl call for assistance when getting out of bed. Abuse screen: Denies threats or abuse. Nutritional screening: No deficits noted. Tuberculosis screening: No symptoms or risk factors identified. Assessment: 19:52 General: Appears in no apparent distress. Pain: Complains of pain in chest Pain does mb9 not radiate. Quality of pain is described as throbbing, Pain began 1 day ago. Neuro: Level of Consciousness is awake, alert, obeys commands, Oriented to person, place, time, situation, Appropriate for age Reports headache. Cardiovascular: Heart tones S1 S2 present Patient's skin is warm and dry. Rhythm is regular. Respiratory: Reports shortness of breath at rest on exertion Airway is patent Respiratory effort is even, unlabored, Respiratory pattern is regular, symmetrical, Breath sounds are clear bilaterally. GI: Abdomen is flat, non-distended, Bowel sounds present X 4 quads. Abd is soft and non tender X 4 quads. Derm: Skin is pink, warm \T\ dry. Musculoskeletal: Range of motion: intact in all extremities. 21:00 Reassessment: No changes from previously documented assessment. Patient and/or family mb9 updated on plan of care and expected duration. Pain level reassessed. Patient is alert, oriented x 3, equal unlabored respirations, skin warm/dry/pink. Vital Signs: 19:00 BP 163 / 124; Pulse 91; Resp 19; Temp 97.9; Pulse Ox 96% on R/A; Weight 70.31 kg; jl7 Height 5 ft. 2 in. ; Pain 6/10; 19:53 BP 189 / 102; Pulse 83; Resp 18; Pulse Ox 99% on R/A; mb9 20:04 BP 178 / 104; Pulse 85; Resp 17; Pulse Ox 98% on R/A; mb9 20:14 BP 181 / 102; Pulse 87; Resp 18; Pulse Ox 99% on R/A; mb9 20:22 BP 187 / 104; Pulse 79; Resp 18; Pulse Ox 95% on R/A; mb9 20:37 BP 137 / 96; Pulse 73; Resp 16; Pulse Ox 97% on R/A; mb9 21:28 BP 135 / 84; Pulse 79; Resp 17; Pulse Ox 100% on R/A; mb9 19:00 Body Mass Index 28.35 (70.31 kg, 157.48 cm) jl7 19:00 Pain Scale: Adult jl7 ED Course: 18:42 Patient arrived in ED. mr 18:42 Jesse Horner is Private Physician. mr 19:00 Rebecca Gonzalez, NILES is Primary Nurse. mb9 19:00 Rico Espinoza MD is Attending Physician. kdr 19:05 EKG completed in triage. Results shown to MD. jl7 19:15 Triage completed. jl7 19:15 Arm band placed on right wrist. jl7 19:51 Basic Metabolic Panel Sent. mb9 19:51 CBC with Diff Sent. mb9 19:51 LFT's Sent. mb9 19:51 Magnesium Sent. mb9 19:51 NT PRO-BNP Sent. mb9 19:51 PT-INR Sent. mb9 19:51 Troponin HS Sent. mb9 19:51 D-Dimer Sent. mb9 19:52 Placed in gown. Bed in low position. Call light in reach. Side rails up X 1. Client mb9 placed on continuous cardiac and pulse oximetry monitoring. NIBP monitoring applied. property assessment monitor on. 19:53 No provider procedures requiring assistance completed. Inserted saline lock: 22 gauge mb9 in left forearm, using aseptic technique. 19:56 XRAY Chest (1 view) In Process Unspecified. EDMS 20:27 Attending Physician role handed off by Rico Espinoza MD rt 20:27 Philip Gupta MD is Attending Physician. rt 21:22 Willian Julian MD is Referral Physician. rt 21:29 IV discontinued, intact, bleeding controlled, No redness/swelling at site. Pressure mb9 dressing applied. Administered Medications: 20:14 Drug: Metoprolol IVP 5 mg Route: IVP; Site: left forearm; mb9 20:14 Drug: Acetaminophen PO 1000 mg Route: PO; mb9 20:32 Follow up: Response: No adverse reaction mb9 20:22 Drug: Metoprolol IVP 5 mg Route: IVP; Site: left forearm; mb9 Medication: 19:53 VIS not applicable for this client. mb9 Outcome: 21:23 Discharge ordered by . rt 21:29 Discharged to home ambulatory. mb9 21:29 Condition: stable 21:29 Discharge instructions given to patient, Instructed on discharge instructions, follow up and referral plans. Demonstrated understanding of instructions, follow-up care. 21:29 Patient left the ED. mb9 Signatures: Dispatcher [employer] Rico Demarco MD MD [facility] Abraham Hammond RN RN jl7 Rebecca Gonzalez RN RN mb9 Philip Gupta MD MD rt
--- NOTE | 2022-08-26 08:21 | EKG ---
Test Date: 2022-08-24 Test Time: 19:06:02 Pediatrician: ZAKIA MEASUREMENT RESULTS: Intervals: Rate: 90 OR: 142 QRSD: 96 QT: 392 QTc: 479 [place]: P: 17 OR: 142 QRS: 44 T: 38 INTERPRETIVE STATEMENTS: Normal sinus rhythm Normal ECG Compared to ECG 09/10/2021 23:24:15 No significant changes Electronically Signed On 08-26-22 08:18:11 CDT by Willian Julian
== END 2022-08-24 21:29 | disposition home or self-care (01) ==
LOC: ER 18:40
DX: R06.00 Dyspnea, unspecified (principal); F17.210 Nicotine dependence, cigarettes, uncomplicated; I10 Essential (primary) hypertension; I25.2 Old myocardial infarction; Z95.818 Presence of other cardiac implants and grafts
CPT/HCPCS: 36415; 71045; 80048; 80076; 83735; 83880; 84484; 85025; 85379; 85610; 93005; 96374; 99285